=== PATIENT | male | born 1980 ===

== ENCOUNTER 2016-12-27 14:44 | Inpatient (IN) | payer OTHER ==
[2016-12-27 14:45] VITALS: BMI 21.5
--- NOTE | 2016-12-27 15:24 | ED PDOC ---
HPI: Psych/Substance Abuse Time Seen by Provider: 12/27/16 14:56 Chief Complaint (Nursing): Substance Abuse Chief Complaint (Provider): Substance Abuse History/Exam Limitations: other (Substance abuse; poor historian) Onset/Duration Of Symptoms: Hrs (prior to arrival) Current Symptoms Are (Timing): Still Present Additional Complaint(s): 36 y/o male presents to the emergency department via EMS for an evaluation of possible substance abuse after found wandering on the street with bizarre behavior. Patient slow to answer questions but admits to drug use but doesnt provide further details.. Denies drug use. Past Medical History Reviewed: Historical Data, Nursing Documentation, Vital Signs Vital Signs: Last Vital Signs Temp 98.0 F 12/27/16 14:47 Pulse 102 H 12/27/16 14:47 Resp 16 12/27/16 14:47 BP 96/57 L 12/27/16 14:47 Pulse Ox 100 12/27/16 14:47 - Medical History PMH: Anxiety, Depression, Pancreatitis, Seizures, Chronic Pain Denies: Diabetes, Hepatitis, HIV, HTN, Chronic Kidney Disease, Sexually Transmitted Disease - Surgical History Surgical History: No Surg Hx - Family History Family History: States: Unknown Family Hx - Social History Current smoker - smoking cessation education provided: Yes Alcohol: Occasional - Immunization History Hx Tetanus Toxoid Vaccination: No Hx Influenza Vaccination: Yes Hx Pneumococcal Vaccination: Yes - Home Medications Home Medications: Ambulatory Orders Medication Instructions Recorded Divalproex [Depakote ER] 500 mg PO BID 04/03/15 Lacosamide [Vimpat] 300 mg PO BID 04/03/15 Levetiracetam [Keppra] 500 mg PO BID 04/03/15 Zolpidem [Ambien] 5 mg PO HS 04/03/15 QUEtiapine [SEROquel] 100 mg PO BID 05/27/15 Divalproex [Depakote ER] 250 mg PO BID #20 ter 09/25/15 levETIRAcetam [Keppra] 500 mg PO BID #20 tab 09/25/15 Naloxone HCl [Narcan] 4 mg NS ONCE #5 spray 09/07/16 - Allergies Allergies/Adverse Reactions: Allergies Allergy/AdvReac Type Severity Reaction Status Date / Time No Known Allergies Allergy Verified 09/14/16 10:56 Review of Systems Review Of Systems: ROS cannot be obtained secondary to pt's inabilty to answer questions. Physical Exam - Physical Exam Appears: Positive for: Well, Non-toxic Head Exam: Positive for: ATRAUMATIC, NORMAL INSPECTION, NORMOCEPHALIC Skin: Positive for: Normal Color, Warm, Dry Cardiovascular/Chest: Positive for: Regular Rate, Rhythm Respiratory: Positive for: Normal Breath Sounds Gastrointestinal/Abdominal: Positive for: Normal Exam Neurologic/Psych: Positive for: Alert (but somnolent) - Laboratory Results Result Diagrams: 12/27/16 19:02 12/27/16 19:40 - ECG O2 Sat by Pulse Oximetry: 100 (RA) Pulse Ox Interpretation: Normal Medical Decision Making Medical Decision Making: Time: 14:56 Initial impression: Possible Substance Abuse --Patient is unable to provide hx and denying substance abuse. --Pending sobriety for assessment. Time: 15:26 Initial Plan: --Head w/o contrast CT --Acetaminophen Stat --Alcohol Serum Stat --COMP Metabolic Panel --Drug Screen, Urine Stat --Salycylate Stat --ED Urine Dipstick (POC) --CBC w differential --Haldol 5 mg IM --Ativan 2 mg IM --Urinalysis Stat --1:1 Observation CONT --Admit to hospital routine (Observation) for ETOH --Restraint: Violent or harm to self/other --Revaluation Scribe Attestation: Documented by Gladys Weiss, acting as a scribe for Evin Guy MD. Provider Scribe Attestation: All medical record entries made by the Scribe were at my direction and personally dictated by me. I have reviewed the chart and agree that the record accurately reflects my personal performance of the history, physical exam, medical decision making, and the department course for this patient. I have also personally directed, reviewed, and agree with the discharge instructions and disposition. ED OBSERVATION Date of observation admission: 12/27/16 Time of observation admission: 15:26 - Observation admission statement Patient is being placed in observation because:: for possible substance abuse/ETOH. - Goals of Observation Goals of observation are:: Pending clinical sobriety and Head CT. Time: 16:22 --Head CT FINDINGS: HEMORRHAGE: No intracranial hemorrhage. BRAIN: No mass effect or edema. The senior-white matter differentiation appears intact.Please note that MRI with diffusion imaging is more sensitive in the detection of acute ischemic event. VENTRICLES: No hydrocephalus. CALVARIUM: Unremarkable. PARANASAL SINUSES: Unremarkable as visualized. No significant inflammatory changes. MASTOID AIR CELLS: Unremarkable as visualized. No inflammatory changes. OTHER FINDINGS: None. IMPRESSION: No acute intracranial pathology identified. Disposition - Clinical Impression Clinical Impression: Elevated CK, Altered mental status, Bradycardia, Seizure disorder - Patient ED Disposition Is Patient to be Admitted: Transfer of Care - Disposition Disposition: Transfer of Care Disposition Time: 17:00 Condition: GUARDED Patient Signed Over To: Paul Jones III Handoff Comments: pending labs urine ekg cxr and dispo
--- NOTE | 2016-12-27 16:52 | CT ---
PROCEDURE: CT HEAD WITHOUT CONTRAST. HISTORY: Bizarre behavior COMPARISON: Noncontrast head CT performed 09/14/16 TECHNIQUE: Axial computed tomography images were obtained through the head/brain without intravenous contrast. Radiation dose: Total exam DLP = 874.95 mGy-cm. This CT exam was performed using one or more of the following dose reduction techniques: Automated exposure control, adjustment of the mA and/or kV according to patient size, and/or use of iterative reconstruction technique. FINDINGS: HEMORRHAGE: No intracranial hemorrhage. BRAIN: No mass effect or edema. The senior-white matter differentiation appears intact.Please note that MRI with diffusion imaging is more sensitive in the detection of acute ischemic event. VENTRICLES: No hydrocephalus. CALVARIUM: Unremarkable. PARANASAL SINUSES: Unremarkable as visualized. No significant inflammatory changes. MASTOID AIR CELLS: Unremarkable as visualized. No inflammatory changes. OTHER FINDINGS: None. IMPRESSION: No acute intracranial pathology identified.
--- NOTE | 2016-12-27 17:09 | ED PDOC ---
- Laboratory Results Result Diagrams: 12/27/16 19:02 12/27/16 19:40 - ECG ECG: Positive for: Interpreted By Me ECG Rhythm: Positive for: Sinus Bradycardia, ST/T Changes (peaked / hyperacute T waves) Rate: 52 O2 Sat by Pulse Oximetry: 100 (RA) Pulse Ox Interpretation: Normal Medical Decision Making Medical Decision Making: Time: 1700 --Placed on ED OBS (15:27) --Pending clinical sobriety, labs, possible crisis evaluation and reassessment. Time: 18:53 --Patient became bradycardic at 49 bpm and a blood pressure of 100/60. --EKG was performed which showed a RRR of 62 bpm with hyperacute T waves therefore cardiac workup was initiated with further blood work obtained and fluid work up started. --Venous Blood Gas Shock --Basic Metabolic Panel --Creatine Phosphokinase --Troponin I Stat --CBC w/ differential --Revaluation labs reviewed lactate normal Depakote therapeutic UDip unremarkable 7pm Remains moderate bradycardia, BP 105/70 on my eval. Remains confused, post-ictal appearing. Unaware date/time- only person and "hospital". Given EKG changes, AMS, mild bradycardia and hypotension, admit Dr Altamirano production service manager medicine. Old charts reviewed from [facility], prior admission for same, concern for endocarditis/ AMS/ drug abus.e Case discussed Dr Altamirano 920pm/ 21:18 Patient admitted to Telemetry as an inpatient for altered mental status, abnormal EKG with bradycardia Scribe Attestation: Documented by Gladys Weiss, acting as a scribe for Paul Jones MD. Provider Scribe Attestation: All medical record entries made by the Scribe were at my direction and personally dictated by me. I have reviewed the chart and agree that the record accurately reflects my personal performance of the history, physical exam, medical decision making, and the department course for this patient. I have also personally directed, reviewed, and agree with the discharge instructions and disposition. Disposition Counseled Patient/Family Regarding: Studies Performed - Clinical Impression Clinical Impression: Elevated CK, Altered mental status, Bradycardia, Seizure disorder - POA Present On Arrival: None - Disposition Disposition: Admitted as In-Patient Disposition Time: 20:45 Condition: GUARDED ED OBSERVATION Date of observation admission: 12/27/16 Time of observation admission: 15:26 - Observation admission statement Patient is being placed in observation because:: --patient is restrained due to being violent or harmful to others and unstable due to possible substance abuse. - Goals of Observation Goals of observation are:: --patient is pending clinical sobriety, labs, possible crisis evaluation and reassessment. - Progress Note Progress Note: 12/27/16 17:00 --Transferred from Dr. Guy Time: 16:22 --Head CT FINDINGS: HEMORRHAGE: No intracranial hemorrhage. BRAIN: No mass effect or edema. The senior-white matter differentiation appears intact.Please note that MRI with diffusion imaging is more sensitive in the detection of acute ischemic event. VENTRICLES: No hydrocephalus. CALVARIUM: Unremarkable. PARANASAL SINUSES: Unremarkable as visualized. No significant inflammatory changes. MASTOID AIR CELLS: Unremarkable as visualized. No inflammatory changes. OTHER FINDINGS: None. IMPRESSION: No acute intracranial pathology identified. Scribe Attestation: Documented by Gladys Weiss, acting as a scribe for Paul Jones MD. Provider Scribe Attestation: All medical record entries made by the Scribe were at my direction and personally dictated by me. I have reviewed the chart and agree that the record accurately reflects my personal performance of the history, physical exam, medical decision making, and the department course for this patient. I have also personally directed, reviewed, and agree with the discharge instructions and disposition. 12/27/16 21:25 See above. Pt required extensive monitoring and re-evals for bradycardia with EKG changes and AMS.
[2016-12-27 17:33] LABS: ALB/GLOB RATIO 1.2 (1.0-2.1); ALBUMIN 4.1 g/dL (3.5-5.0); ALT/SGPT 57 U/L (21-72); AST/SGOT 48 U/L (17-59); BLOOD UREA NITROGEN 17 mg/dl (9-20); GFR AFRICAN-AMERICAN > 60; GFR NON-AFRICAN AMERICAN > 60
[2016-12-27 17:35] LABS: SALICYLATE < 1.0 mg/dl
[2016-12-27] MEDS ORDERED: Sodium Chloride 0.9% 1,000 ML IV STA ×2 (17:50→22:39)
[2016-12-27 18:40] LABS: ACETAMINOPHEN < 10.0 ug/ml (10.0-30.0)
[2016-12-27 19:17] LABS: BASO % 0.6 % (0.0-2.0); EOS # 0.1 K/uL (0.0-0.7); EOS % 1.1 % (0.0-4.0); HEMOGLOBIN 13.2 g/dL (12.0-18.0); LYMPH # 2.9 K/uL (1.0-4.3); LYMPH % 61.4 % (20.0-40.0); MEAN CELL VOLUME 99.5 fl (80.0-94.0); MEAN CORPUSCULAR HEMOGLOBIN 32.8 pg (27.0-31.0); MEAN PLATELET VOLUME 9.7 fl (7.2-11.7); MONO # 0.5 K/uL (0.0-0.8); MONO % 10.3 % (0.0-10.0); NEUT # 1.3 K/uL (1.8-7.0); NEUT % 26.6 % (50.0-75.0); NRBC % 0.1 % (0.0-0.0); RBC 4.02 Mil/uL (4.40-5.90); RED CELL DISTRIBUTION WIDTH 13.6 % (11.5-14.5); WHITE BLOOD COUNT 4.7 K/uL (4.8-10.8)
[2016-12-27 20:04] LABS: BLOOD UREA NITROGEN 15 mg/dl (9-20); CALCIUM 8.7 mg/dL (8.4-10.2); GFR AFRICAN-AMERICAN > 60; GFR NON-AFRICAN AMERICAN > 60
[2016-12-27 21:29] LABS: URINE BILIRUBIN NEGATIVE (NEGATIVE); URINE BLOOD SMALL (NEGATIVE); URINE CLARITY CLEAR (Clear); URINE COLOR YELLOW (YELLOW); URINE GLUCOSE (UA) NEG (Normal); URINE LEUKOCYTE ESTERASE NEG Leu/uL (Negative); URINE NITRATE NEGATIVE (NEGATIVE); URINE PROTEIN NEGATIVE (NEGATIVE); URINE UROBILINOGEN 0.2-1.0 mg/dL (0.2-1.0)
[2016-12-27 21:34] LABS: BARBITURATES, UR NEGATIVE (NEGATIVE); BENZODIAZEPINES, UR POSITIVE (NEGATIVE); OPIATES, UR POSITIVE (NEGATIVE); PHENCYCLIDINE, UR NEGATIVE (NEGATIVE)
[2016-12-28 00:19] VITALS: RESP 18
[2016-12-28] MEDS ORDERED: Enoxaparin 40 mg Syringe SC SCH (09:00)
[2016-12-28] MEDS ORDERED: Lacosamide 50 MG Tab PO SCH (09:00)
[2016-12-28] MEDS ORDERED: Divalproex 250 mg DR(BID formulation) PO SCH (09:00)
--- NOTE | 2016-12-28 10:08 | RAD ---
HISTORY: r/o infiltrate COMPARISON: Comparison chest 05/13/2016 FINDINGS: LUNGS: No active pulmonary disease. PLEURA: No significant pleural effusion identified, no pneumothorax apparent. CARDIOVASCULAR: Normal. OSSEOUS STRUCTURES: No significant abnormalities. VISUALIZED UPPER ABDOMEN: Normal. OTHER FINDINGS: None. IMPRESSION: No active disease.
[2016-12-28] MEDS ORDERED: Lacosamide 100 MG Tab PO SCH (10:15)
[2016-12-28 12:23] VITALS: BP 108/61; TEMP 98.2
[2016-12-28 12:55] VITALS: O2SAT 100
--- NOTE | 2016-12-28 14:18 | CP.PCM.HP ---
<Lalitha Storey - Last Filed: 12/28/16 14:15> History of Present Illness - History of Present Illness History of Present Illness: 36yo M with PMHx Anxiety, Depression, Pancreatitis, Seizures, Chronic Pain admitted for AMS and substance abuse. Pt does not recollect why he is in the hospital and would like to leave. Denies drug use. PMHx: as above SHx: denies FHx: NC Allergies: NKDA Social hx: denies drug use evaluated with attending Present on Admission - Present on Admission Any Indicators Present on Admission: No Review of Systems - Constitutional Constitutional: absent: Chills, Fever - Cardiovascular Cardiovascular: absent: Chest Pain - Respiratory Respiratory: absent: Dyspnea - Gastrointestinal Gastrointestinal: absent: Abdominal Pain, Diarrhea, Nausea, Vomiting - Genitourinary Genitourinary: absent: Dysuria, Hematuria - Musculoskeletal Musculoskeletal: absent: Back Pain - Neurological Neurological: absent: Headaches Past Patient History - Infectious Disease Hx of Infectious Diseases: None - Tetanus Immunizations Tetanus Immunization: Unknown - Past Medical History & Family History Past Medical History?: Yes - Past Social History Alcohol: Occasional - CARDIAC Hx Hypertension: No - PULMONARY Hx Respiratory Disorders: No - NEUROLOGICAL Hx Seizures: Yes - HEENT Hx HEENT Problems: No - RENAL Hx Chronic Kidney Disease: No - ENDOCRINE/METABOLIC Hx Endocrine Disorders: No - HEMATOLOGICAL/ONCOLOGICAL Hx Human Immunodeficiency Virus (HIV): No - INTEGUMENTARY Hx Dermatological Problems: No - MUSCULOSKELETAL/RHEUMATOLOGICAL Hx Musculoskeletal Disorders: No Hx Falls: Yes - GASTROINTESTINAL Hx Pancreatitis: Yes - GENITOURINARY/GYNECOLOGICAL Hx Sexually Transmitted Disorders: No - PSYCHIATRIC Hx Anxiety: Yes Hx Depression: Yes - SURGICAL HISTORY Hx Surgeries: Yes - ANESTHESIA Hx Anesthesia: Yes Hx Anesthesia Reactions: No Meds Allergies/Adverse Reactions: Allergies Allergy/AdvReac Type Severity Reaction Status Date / Time No Known Allergies Allergy Verified 09/14/16 10:56 Physical Exam - Constitutional Appears: Non-toxic, No Acute Distress - Head Exam Head Exam: ATRAUMATIC, NORMAL INSPECTION - Eye Exam Eye Exam: Normal appearance - ENT Exam ENT Exam: Mucous Membranes Moist - Neck Exam Neck exam: Positive for: Normal Inspection - Respiratory Exam Respiratory Exam: Clear to Auscultation Bilateral - Cardiovascular Exam Cardiovascular Exam: REGULAR RHYTHM - GI/Abdominal Exam GI & Abdominal Exam: Normal Bowel Sounds, Soft - Extremities Exam Extremities exam: Positive for: normal inspection - Back Exam Back exam: NORMAL INSPECTION - Neurological Exam Neurological exam: Alert, Oriented x3 Additional comments: motor/sensation grossly intact - Skin Skin Exam: Dry, Warm Results - Vital Signs Recent Vital Signs: Last Vital Signs Temp 98.2 F 12/28/16 12:23 Pulse 46 L 12/28/16 12:23 Resp 18 12/28/16 12:23 BP 108/61 12/28/16 12:23 Pulse Ox 100 12/28/16 12:57 - Labs Result Diagrams: 12/27/16 19:02 12/27/16 19:40 Labs: Laboratory Results - last 24 hr 12/28/16 07:04 Valproic Acid 38.9 L Assessment & Plan - Assessment and Plan (Free Text) Assessment: 36yo M with PMHx Anxiety, Depression, Pancreatitis, Seizures, Chronic Pain admitted for AMS and substance abuse. pt would like to s/o AMA AMS -neuro c/s -psych c/s -CT Head: no acute pathology substance abuse -urine tox: + opiates and benzo -denies drug use seizure -c/w home med -neuro c/s DVT ppx -SCDs Decision To Admit - Pt Status Changed To: Hospital Disposition Of: Observation - . Bed Request Type: Telemetry Admitting Physician: Jagjit Altamirano <Jagjit Altamirano - Last Filed: 12/30/16 17:57> Results - Vital Signs Recent Vital Signs: Last Vital Signs Temp 98.2 F 12/28/16 12:23 Pulse 46 L 12/28/16 12:23 Resp 18 12/28/16 12:23 BP 108/61 12/28/16 12:23 Pulse Ox 100 12/28/16 12:57 - Labs Result Diagrams: 12/27/16 19:02 12/27/16 19:40 Assessment & Plan - Assessment and Plan (Free Text) Assessment: Patient seen and examined with residents in rounds. Case, condition, investigative work up and plan discussed in detail. Agree with residents progress note. Plan: As ordered. (Jagjit Altamirano MD)
--- NOTE | 2016-12-28 14:22 | CP.PCM.CON ---
History of Present Illness - History of Present Illness History of Present Illness: psychiatry consult ordered by: dr garcia reason:AMS and pt wants to sign out AMA cc: doc, let me leave hpi: 36 yo male with history of opioid dependence and current iv use. he has a seizure disorder. he was admitted after he was found wandering streets acting bizarrely last night. he states he is not suicidal or homicidal. he states he was using heroin and also "took some pills." he is currently vomiting, cramping , nauseated and obviously in opioid withdrawal. he states he plans to go to an inpatient rehab program in [place], [place] but has no details about the program. states it is his sons birthday and he wants to go home. no psychotic or mood symptoms currently. past psych: most recently in [facility]. not adherent to follow up. medical history: has seizure disorder substance use: 10-15 bags heroin iv daily. will not disclose what "pill he took " prior to admission. social: gets ssi, lives alone. mse: alert, oriented x 3. mood is irritated/anxious. affect appropriate. denies si/hi. denies a/v hallucinations. thoughts are logical. speech is appropriate. fair i/j. assessment: opioid depedence in withdrawal pt not expressing suicidal thoughts and exhibiting behavioral control currently recommendation: no need for acute psychiatric treatment appears to have capacity to understand his treatment and made decisions about his discharge pt's presenting symptoms could be related to his neurological condition and this investigative writer is not able to comment regarding pt's seizure disorder. Past Patient History - Infectious Disease Hx of Infectious Diseases: None - Tetanus Immunizations Tetanus Immunization: Unknown - Past Medical History & Family History Past Medical History?: Yes - Past Social History Alcohol: Occasional - CARDIAC Hx Hypertension: No - PULMONARY Hx Respiratory Disorders: No - NEUROLOGICAL Hx Seizures: Yes - HEENT Hx HEENT Problems: No - RENAL Hx Chronic Kidney Disease: No - ENDOCRINE/METABOLIC Hx Endocrine Disorders: No - HEMATOLOGICAL/ONCOLOGICAL Hx Human Immunodeficiency Virus (HIV): No - INTEGUMENTARY Hx Dermatological Problems: No - MUSCULOSKELETAL/RHEUMATOLOGICAL Hx Musculoskeletal Disorders: No Hx Falls: Yes - GASTROINTESTINAL Hx Pancreatitis: Yes - GENITOURINARY/GYNECOLOGICAL Hx Sexually Transmitted Disorders: No - PSYCHIATRIC Hx Anxiety: Yes Hx Depression: Yes - SURGICAL HISTORY Hx Surgeries: Yes - ANESTHESIA Hx Anesthesia: Yes Hx Anesthesia Reactions: No Meds Allergies/Adverse Reactions: Allergies Allergy/AdvReac Type Severity Reaction Status Date / Time No Known Allergies Allergy Verified 09/14/16 10:56 - Medications Medications: Current Medications Divalproex Sodium (Depakote Dr(*Bid*)) 250 mg PO BID [facility] Last Admin: 12/28/16 09:25 Dose: 250 mg Enoxaparin Sodium (Lovenox) 40 mg SC DAILY [facility] PRN Reason: Protocol Last Admin: 12/28/16 09:27 Dose: 40 mg Levetiracetam (Keppra) 500 mg PO BID [facility] Last Admin: 12/28/16 11:01 Dose: 500 mg Ondansetron HCl (Zofran Inj) 4 mg IVP Q6 PRN PRN Reason: Nausea/Vomiting Last Admin: 12/28/16 12:45 Dose: 4 mg Results - Vital Signs Recent Vital Signs: Last Vital Signs Temp 98.2 F 12/28/16 12:23 Pulse 46 L 12/28/16 12:23 Resp 18 12/28/16 12:23 BP 108/61 12/28/16 12:23 Pulse Ox 100 12/28/16 12:57 - Labs Result Diagrams: 12/27/16 19:02 12/27/16 19:40 Labs: Laboratory Results - last 24 hr 12/28/16 07:04 Valproic Acid 38.9 L
--- NOTE | 2016-12-28 15:37 | CP.PCM.DIS ---
Provider - Provider Date of Admission: 12/27/16 21:18 Attending physician: Jagjit Altamirano MD Time Spent in preparation of Discharge (in minutes): 20 Diagnosis - Discharge Diagnosis (1) Altered mental status Status: Acute (2) Seizure disorder Status: Chronic (3) Drug abuse Status: Acute Priority: High Hospital Course - Lab Results Lab Results: Most Recent Lab Values WBC 4.7 K/uL (4.8-10.8) L 12/27/16 19:02 RBC 4.02 Mil/uL (4.40-5.90) L 12/27/16 19:02 Hgb 13.2 g/dL (12.0-18.0) 12/27/16 19: Hct 40.0 % (35.0-51.0) 12/27/16 19:02 MCV 99.5 fl (80.0-94.0) H D 12/27/16 19:02 MCH 32.8 pg (27.0-31.0) H 12/27/16 19:02 MCHC 33.0 g/dL (33.0-37.0) 12/27/16 19: RDW 13.6 % (11.5-14.5) 12/27/16 19:02 Plt Count 94 K/uL (130-400) L D 12/27/16 19:02 MPV 9.7 fl (7.2-11.7) 12/27/16 19:02 Neut % (Auto) 26.6 % (50.0-75.0) L 12/27/16 19: Lymph % (Auto) 61.4 % (20.0-40.0) H 12/27/16 19:02 [place] % (Auto) 10.3 % (0.0-10.0) H 12/27/16 19:02 Eos % (Auto) 1.1 % (0.0-4.0) 12/27/16 19:02 Baso % (Auto) 0.6 % (0.0-2.0) 12/27/16 19:02 Neut # 1.3 K/uL (1.8-7.0) L 12/27/16 19: Lymph # 2.9 K/uL (1.0-4.3) 12/27/16 19:02 [place] # 0.5 K/uL (0.0-0.8) 12/27/16 19:02 Eos # 0.1 K/uL (0.0-0.7) 12/27/16 19:02 Baso # 0.0 K/uL (0.0-0.2) 12/27/16 19:02 Sodium 142 mmol/l (132-148) 12/27/16 19:40 Potassium 4.1 MMOL/L (3.6-5.0) 12/27/16 19:40 Chloride 108 mmol/L (98-107) H 12/27/16 19:40 Carbon Dioxide 26 mmol/L (22-30) 12/27/16 19:40 Anion Gap 12 (10-20) 12/27/16 19:40 BUN 15 mg/dl (9-20) 12/27/16 19:40 Creatinine 0.7 mg/dL (0.8-1.5) L 12/27/16 19:40 Est GFR ( Amer) > 60 12/27/16 19:40 Est GFR (Non-Af Amer) > 60 12/27/16 19:40 Random Glucose 84 mg/dL (75-110) 12/27/16 19:40 Lactic Acid 0.6 MMOL/L (0.7-2.1) L 12/27/16 19:40 Calcium 8.7 mg/dL (8.4-10.2) 12/27/16 19:40 Total Bilirubin 0.6 mg/dl (0.2-1.3) 12/27/16 16:55 AST 48 U/L (17-59) 12/27/16 16:55 ALT 57 U/L (21-72) 12/27/16 16:55 Alkaline Phosphatase 34 U/L (38-126) L 12/27/16 16:55 Total Creatine Kinase 314 U/L (55-170) H 12/27/16 19:40 Troponin I < 0.0120 ng/mL (0.00-0.120) 12/27/16 19:40 Total Protein 7.4 G/DL (6.3-8.2) 12/27/16 16:55 Albumin 4.1 g/dL (3.5-5.0) 12/27/16 16:55 Globulin 3.3 gm/dL (2.2-3.9) 12/27/16 16:55 Albumin/Globulin Ratio 1.2 (1.0-2.1) 12/27/16 16:55 Urine Color Yellow (YELLOW) 12/27/16 21:12 Urine Clarity Clear (Clear) 12/27/16 21:12 Urine pH 6.0 (5.0-8.0) 12/27/16 21:12 Ur Specific [place] 1.010 (1.003-1.030) 12/27/16 21:12 Urine Protein Negative mg/dL (NEGATIVE) 12/27/16 21:12 Urine Glucose (UA) Neg mg/dL (Normal) 12/27/16 21:12 Urine Ketones Negative mg/dL (NEGATIVE) 12/27/16 21:12 Urine Blood Small (NEGATIVE) 12/27/16 21:12 Urine Nitrate Negative (NEGATIVE) 12/27/16 21:12 Urine Bilirubin Negative (NEGATIVE) 12/27/16 21:12 Urine Urobilinogen 0.2-1.0 mg/dL (0.2-1.0) 12/27/16 21:12 Ur Leukocyte Esterase Neg Nicolás/uL (Negative) 12/27/16 21:12 Urine RBC (Auto) < 1 /hpf (0-3) 12/27/16 21:12 Urine Microscopic WBC 1 /hpf (0-5) 12/27/16 21:12 Salicylates < 1.0 mg/dl 12/27/16 16:55 Urine Opiates Screen Positive (NEGATIVE) H 12/27/16 21:12 Urine Methadone Screen Negative (NEGATIVE) 12/27/16 21:12 Acetaminophen < 10.0 ug/ml (10.0-30.0) L 12/27/16 16:55 Ur Barbiturates Screen Negative (NEGATIVE) 12/27/16 21:12 Valproic Acid 38.9 ug/mL (50.0-100.0) L 12/28/16 07:04 Ur Phencyclidine Scrn Negative (NEGATIVE) 12/27/16 21:12 Ur Amphetamines Screen Negative (NEGATIVE) 12/27/16 21:12 U Benzodiazepines Scrn Positive (NEGATIVE) H 12/27/16 21:12 U Oth Cocaine Metabols Negative (NEGATIVE) 12/27/16 21:12 U Cannabinoids Screen Negative (NEGATIVE) 12/27/16 21:12 Alcohol, Quantitative < 10 mg/dl (0-10) 12/27/16 16:55 - Hospital Course Hospital Course: 36yo M with PMHx Anxiety, Depression, Pancreatitis, Seizures, Chronic Pain admitted for AMS and substance abuse. c/s psych Dr. Pastor and recommended pt could make own decisions. Pt wanted to s/o AMA and didn't want further workup/ tx per neuro c/s, AMA form signed. Pt to FU with neuro as outpt. Discharge Exam - Head Exam Head Exam: ATRAUMATIC, NORMAL INSPECTION Discharge Plan - Follow Up Plan Condition: GUARDED Disposition: AGAINST MEDICAL ADVICE Additional Instructions: FU with neurology
--- NOTE | 2016-12-30 11:43 | PQF GENQUE ---
Dr. Altamirano pt was admitted with altered mental status. After study what is the source or cause of pt's altered mental status? This form is a permanent part of the medical record Clarification of your documentation is requested to better reflect the severity of illness and intensity of treatment of your patient. Indicators present [] Specify: [] [] Specify: [] [] Specify: [] [] Specify: [] Location in the medical record that reflects the above clinical findings: [] Treatment Provided: [] PHYSICIAN'S RESPONSE Based on your medical judgment of the clinical indicators outlined above please clarify the following: [] Practitioner response [] If unable to determine, please check the box, sign and date. Present On Admission (POA) Indicator: [] Present at the time of admission [] Not present at the time of admission [] Clinically Undetermined In responding to this query, please exercise your independent professional judgment. The fact that a question is asked does not imply that any particular answer is desired or expected. Thank you for your clarification on this documentation. If you have any questions please call:[ ] * Thank you, [ ]Missy Gross delivery professional EVELIA
--- NOTE | 2016-12-30 11:50 | PQF GENQUE ---
consult dated 12/28 documented opioid dependence in withdrawal. Discharge summary documented drug abuse. After study do you agree with consultation report? This form is a permanent part of the medical record Clarification of your documentation is requested to better reflect the severity of illness and intensity of treatment of your patient. Indicators present [] Specify: [] [] Specify: [] [] Specify: [] [] Specify: [] Location in the medical record that reflects the above clinical findings: [] Treatment Provided: [] PHYSICIAN'S RESPONSE Based on your medical judgment of the clinical indicators outlined above please clarify the following: [] Practitioner response [] If unable to determine, please check the box, sign and date. Present On Admission (POA) Indicator: [] Present at the time of admission [] Not present at the time of admission [] Clinically Undetermined In responding to this query, please exercise your independent professional judgment. The fact that a question is asked does not imply that any particular answer is desired or expected. Thank you for your clarification on this documentation. If you have any questions please call:[ ] * Thank you, [ ]Missy Gross etl informatica developer EVELIA
[2017-01-04 15:26] VITALS: PULSE 52
== END 2016-12-28 15:40 | disposition left against medical advice (07) | DRG 463 ==
LOC: H.ER 14:44 → H.EROBSV 15:26 → OBSVTOIN 21:18 → H.ERHOLD 21:23 → H.TEL 22:57
PROVIDERS: ADMIT Internal Medicine; ATTEND Internal Medicine
DX: R41.82 Altered mental status, unspecified (principal); F11.10 Opioid abuse, uncomplicated; Z78.1 Physical restraint status; R00.1 Bradycardia, unspecified; F32.9 Major depressive disorder, single episode, unspecified; G40.909 Epilepsy, unspecified, not intractable, without status epilepticus; Z91.83 Wandering in diseases classified elsewhere; F41.9 Anxiety disorder, unspecified; G89.29 Other chronic pain

== ENCOUNTER 2017-01-27 21:41 | Emergency (ER) | payer MEDICAID, OTHER ==
[2017-01-27 21:42] VITALS: BMI 21.5
[2017-01-27 21:52] VITALS: BP 113/68; PULSE 79; RESP 19; TEMP 98.6; O2SAT 97
[2017-01-27] MEDS ORDERED: Sodium Chloride 0.9% 1,000 ML IV STA (22:08)
--- NOTE | 2017-01-27 22:11 | ED PDOC ---
HPI: General Adult Time Seen by Provider: 01/27/17 22:08 Chief Complaint (Nursing): Seizure Chief Complaint (Provider): SUICIDAL IDEATION History Per: Patient (36 Y/O MALE H/O EPILEPSY/HEROIN ABUSE/DEPRESSION HERE WITH COMPLAINT OF SUICIDAL IDEATION/DEPRESSION AND HEROIN INGESTION TODAY IN ATTEMPT TO HURT SELF. PATIENT NOTES SEIZURE TODAY AT 6:30 UNWITNESSED. RECENTLY DISCHARGED FOR THIS 3 DAYS PRIOR AT [facility]. STATES COMPLIANT ON SEIZURE MEDICATION.) Past Medical History Reviewed: Historical Data, Nursing Documentation, Vital Signs Vital Signs: Last Vital Signs Temp 98.6 F 01/27/17 21:44 Pulse 79 01/27/17 21:44 Resp 19 01/27/17 21:44 BP 113/68 01/27/17 21:44 Pulse Ox 97 01/27/17 22:11 - Medical History PMH: Anxiety, Depression, Pancreatitis, Seizures, Chronic Pain Denies: Diabetes, Hepatitis, HIV, HTN, Chronic Kidney Disease, Sexually Transmitted Disease - Family History Family History: States: Unknown Family Hx - Immunization History Hx Tetanus Toxoid Vaccination: No Hx Influenza Vaccination: Yes Hx Pneumococcal Vaccination: Yes - Home Medications Home Medications: Ambulatory Orders Medication Instructions Recorded Divalproex [Depakote ER] 500 mg PO BID 04/03/15 Eslicarbazepine Acetate [Aptiom] 1 tab PO DAILY 01/09/17 Zolpidem [Ambien] 1 tab PO HS 01/09/17 hydrALAZINE [Apresoline] 1 tab PO DAILY 01/09/17 - Allergies Allergies/Adverse Reactions: Allergies Allergy/AdvReac Type Severity Reaction Status Date / Time No Known Allergies Allergy Verified 01/27/17 21:48 Review of Systems ROS Statement: Except As Marked, All Systems Reviewed And Found Negative Physical Exam - Reviewed Nursing Documentation Reviewed: Yes Vital Signs Reviewed: Yes - Physical Exam Appears: Positive for: Well, Non-toxic, No Acute Distress Head Exam: Positive for: ATRAUMATIC, NORMAL INSPECTION, NORMOCEPHALIC Skin: Positive for: Normal Color, Warm, DRY Eye Exam: Positive for: EOMI, Normal appearance, PERRL ENT: Positive for: Normal ENT Inspection Neck: Positive for: Normal, Painless ROM Cardiovascular/Chest: Positive for: Regular Rate, Rhythm Respiratory: Positive for: CNT, Normal Breath Sounds Gastrointestinal/Abdominal: Positive for: Normal Exam, Bowel Sounds, Soft Back: Positive for: Normal Inspection Extremity: Positive for: Normal ROM Neurologic/Psych: Positive for: Alert, Oriented - Laboratory Results Result Diagrams: 01/27/17 22:32 01/27/17 22:32 - ECG O2 Sat by Pulse Oximetry: 97 - Progress ED Course And Treament: Patient reading newpaper in ED. Seen by crisis Cleared for discharge by Dr. Up Diagnosis Opiate Addiction. Disposition - Clinical Impression Clinical Impression: Opiate addiction - Patient ED Disposition Is Patient to be Admitted: No - Disposition Referrals: [facility] [place] [Outside] Disposition: Routine/Home Disposition Time: 01:58 Condition: FAIR Instructions: Narcotic Abuse (ED)
[2017-01-27 22:37] LABS: BASO % 0.7 % (0.0-2.0); EOS # 0.1 K/uL (0.0-0.7); EOS % 2.3 % (0.0-4.0); HEMATOCRIT 33.9 % (35.0-51.0); LYMPH # 2.1 K/uL (1.0-4.3); LYMPH % 50.3 % (20.0-40.0); MEAN CELL VOLUME 96.1 fl (80.0-94.0); MEAN CORPUSCULAR HGB CONC 34.4 g/dL (33.0-37.0); MEAN PLATELET VOLUME 8.6 fl (7.2-11.7); MONO # 0.5 K/uL (0.0-0.8); MONO % 11.6 % (0.0-10.0); NEUT # 1.5 K/uL (1.8-7.0); NEUT % 35.1 % (50.0-75.0); NRBC % 0.2 % (0.0-0.0); RED CELL DISTRIBUTION WIDTH 13.1 % (11.5-14.5); WHITE BLOOD COUNT 4.2 K/uL (4.8-10.8)
[2017-01-27 22:42] LABS: RBC URINE 1 /hpf (0-3); URINE BILIRUBIN NEGATIVE (NEGATIVE); URINE BLOOD NEGATIVE (NEGATIVE); URINE COLOR YELLOW (YELLOW); URINE GLUCOSE (UA) NEG (Normal); URINE KETONE TRACE mg/dL (NEGATIVE); URINE LEUKOCYTE ESTERASE NEG Leu/uL (Negative); URINE PROTEIN NEGATIVE (NEGATIVE); WBC URINE 1 /hpf (0-5)
[2017-01-27 22:47] LABS: ALB/GLOB RATIO 1.2 (1.0-2.1); ALCOHOL SERUM < 10 mg/dl (0-10); ALKALINE PHOSPHATASE 37 U/L (38-126); ALT/SGPT 61 U/L (21-72); AST/SGOT 50 U/L (17-59); BILIRUBIN,TOTAL 0.4 mg/dl (0.2-1.3); BLOOD UREA NITROGEN 10 mg/dl (9-20); CARBON DIOXIDE 29 mmol/L (22-30); CHLORIDE 103 mmol/L (98-107); GFR AFRICAN-AMERICAN > 60; GLUCOSE,RANDOM 97 mg/dL (75-110); MAGNESIUM 1.8 MG/DL (1.6-2.3); POTASSIUM 3.9 MMOL/L (3.6-5.0); SODIUM 140 mmol/l (132-148); TOTAL PROTEIN 7.6 G/DL (6.3-8.2)
== END 2017-01-28 02:17 | disposition home or self-care (01) ==
LOC: H.ER 21:41
DX: F11.20 Opioid dependence, uncomplicated (principal)

== ENCOUNTER 2017-04-07 03:21 | Emergency (ER) | payer OTHER ==
[2017-04-07 03:21] VITALS: BMI 21.5
[2017-04-07 03:35] VITALS: BP 141/86; PULSE 101; RESP 18; TEMP 97.9; O2SAT 100
--- NOTE | 2017-04-07 04:07 | ED PDOC ---
HPI: Headache Chief Complaint (Provider): Headache History Per: Patient History/Exam Limitations: no limitations Onset/Duration Of Symptoms: Hrs Additional Complaint(s): Bradly Ng is a 36 year old male, with a past medical history of anxiety and depression, who was brought to the emergency department by EMS complaining of a headache associated with dizziness onset prior to arrival. EMS reports patient was picked up from [facility] after feeling dizzy. Patient states he was released from group home at 1:20am, he ambulated from [place] to [place], where he lives, and stopped at [facility]. He denies any further medical complaints. PMD: None provided. <Mitch Muir - Last Filed: 04/07/17 04:12> <Wanda Waters - Last Filed: 04/07/17 05:14> Time Seen by Provider: 04/07/17 03:34 Chief Complaint (Nursing): Headache Past Medical History Reviewed: Historical Data, Nursing Documentation, Vital Signs Vital Signs: Last Vital Signs Temp 97.9 F 04/07/17 03:31 Pulse 101 H 04/07/17 03:31 Resp 18 04/07/17 03:31 BP 141/86 04/07/17 03:31 Pulse Ox 100 04/07/17 03:31 - Medical History PMH: Anxiety, Depression, Pancreatitis, Seizures, Chronic Pain Denies: Diabetes, Hepatitis, HIV, HTN, Chronic Kidney Disease, Sexually Transmitted Disease - Family History Family History: States: Unknown Family Hx - Social History Current smoker - smoking cessation education provided: Yes (Light smoker <10 cigarettes daily) Alcohol: None Drugs: Other (Heroin) - Immunization History Hx Tetanus Toxoid Vaccination: No Hx Influenza Vaccination: Yes Hx Pneumococcal Vaccination: Yes <Mitch Muir - Last Filed: 04/07/17 04:12> Vital Signs: Last Vital Signs Temp 97.9 F 04/07/17 03:31 Pulse 101 H 04/07/17 03:31 Resp 18 04/07/17 03:31 BP 141/86 04/07/17 03:31 Pulse Ox 100 04/07/17 04:15 <Wanda Waters - Last Filed: 04/07/17 05:14> - Home Medications Home Medications: Ambulatory Orders Medication Instructions Recorded Divalproex [Depakote ER] 500 mg PO BID 04/03/15 Eslicarbazepine Acetate [Aptiom] 1 tab PO DAILY 01/09/17 Zolpidem [Ambien] 1 tab PO HS 01/09/17 hydrALAZINE [Apresoline] 1 tab PO DAILY 01/09/17 - Allergies Allergies/Adverse Reactions: Allergies Allergy/AdvReac Type Severity Reaction Status Date / Time No Known Allergies Allergy Verified 04/07/17 03:31 Review of Systems ROS Statement: Except As Marked, All Systems Reviewed And Found Negative Neurological: Positive for: Headache, Dizziness <Mitch Muir - Last Filed: 04/07/17 04:12> Physical Exam - Reviewed Nursing Documentation Reviewed: Yes Vital Signs Reviewed: Yes - Physical Exam Appears: Positive for: Well, Non-toxic, No Acute Distress Head Exam: Positive for: ATRAUMATIC, NORMAL INSPECTION, NORMOCEPHALIC Skin: Positive for: Normal Color, Warm, Dry Eye Exam: Positive for: EOMI, Normal appearance, PERRL Neck: Positive for: Normal, Painless ROM, Supple Cardiovascular/Chest: Positive for: Regular Rate, Rhythm. Negative for: Murmur Respiratory: Positive for: Normal Breath Sounds. Negative for: Respiratory Distress Gastrointestinal/Abdominal: Positive for: Normal Exam, Bowel Sounds, Soft. Negative for: Tenderness Back: Positive for: Normal Inspection. Negative for: L CVA Tenderness, R CVA Tenderness Extremity: Positive for: Normal ROM. Negative for: Pedal Edema Neurologic/Psych: Positive for: Alert, Oriented. Negative for: Motor/Sensory Deficits <Mitch Muir - Last Filed: 04/07/17 04:12> - ECG O2 Sat by Pulse Oximetry: 100 (RA) Pulse Ox Interpretation: Normal <Mitch Muir - Last Filed: 04/07/17 04:12> Medical Decision Making Medical Decision Making: Initial Impression: headache Initial Plan: -Patient is now stating he feels fine and wants to go home. Scribe Attestation: Documented by Jayson Mendoza, acting as a scribe for Mitch Muir MD Provider Scribe Attestation: All medical record entries made by the Scribe were at my direction and personally dictated by me. I have reviewed the chart and agree that the record accurately reflects my personal performance of the history, physical exam, medical decision making, and the department course for this patient. I have also personally directed, reviewed, and agree with the discharge instructions and disposition. <Mitch Muir - Last Filed: 04/07/17 04:12> Disposition <Mitch Muir - Last Filed: 04/07/17 04:12> - Patient ED Disposition Is Patient to be Admitted: No - Disposition Disposition: Routine/Home Disposition Time: 05:14 - POA Present On Arrival: None <Wanda Waters - Last Filed: 04/07/17 05:14> - Clinical Impression Clinical Impression: Headache - Disposition Condition: STABLE Forms: [facility] (Paraguayan)
--- NOTE | 2017-04-07 04:12 | ED PDOC ---
HPI: Headache Time Seen by Provider: 04/07/17 03:34 Chief Complaint (Nursing): Headache Chief Complaint (Provider): Headache History Per: Patient Past Medical History Vital Signs: Last Vital Signs Temp 97.9 F 04/07/17 03:31 Pulse 101 H 04/07/17 03:31 Resp 18 04/07/17 03:31 BP 141/86 04/07/17 03:31 Pulse Ox 100 04/07/17 03:31 - Medical History PMH: Anxiety, Depression, Pancreatitis, Seizures, Chronic Pain Denies: Diabetes, Hepatitis, HIV, HTN, Chronic Kidney Disease, Sexually Transmitted Disease - Family History Family History: States: Unknown Family Hx - Immunization History Hx Tetanus Toxoid Vaccination: No Hx Influenza Vaccination: Yes Hx Pneumococcal Vaccination: Yes - Home Medications Home Medications: Ambulatory Orders Medication Instructions Recorded Divalproex [Depakote ER] 500 mg PO BID 04/03/15 Eslicarbazepine Acetate [Aptiom] 1 tab PO DAILY 01/09/17 Zolpidem [Ambien] 1 tab PO HS 01/09/17 hydrALAZINE [Apresoline] 1 tab PO DAILY 01/09/17 - Allergies Allergies/Adverse Reactions: Allergies Allergy/AdvReac Type Severity Reaction Status Date / Time No Known Allergies Allergy Verified 04/07/17 03:31 - ECG O2 Sat by Pulse Oximetry: 100 Disposition - Disposition Forms: [employer] (Pashto)
== END 2017-04-07 04:45 | disposition home or self-care (01) ==
LOC: H.ER 03:21
DX: R51 Headache (principal); F41.9 Anxiety disorder, unspecified

== ENCOUNTER 2017-06-30 09:19 | Observation (INO) | payer OTHER ==
[2017-06-30 09:20] VITALS: BMI 21.5
[2017-06-30 09:39] VITALS: TEMP 98.9
[2017-06-30] MEDS ORDERED: Sodium Chloride 0.9% 1,000 ML IV STA (09:45)
--- NOTE | 2017-06-30 09:56 | ED PDOC ---
HPI: Seizure Time Seen by Provider: 06/30/17 09:28 Chief Complaint (Nursing): Seizure Chief Complaint (Provider): Seizure History Per: Patient History/Exam Limitations: no limitations Number Of Seizures: Multiple Associated Symptoms: Injury As A Result Of Seizure Activity (laceration), Other (Bit lip) Additional Complaint(s): Bradly is a 37 y/o male who was brought to the ED for evaluation after multiple seizures (two last night, one this morning), during which he fell, and sustained multiple abrasions and a laceration to the right eyebrow. Prior to last night, patient states his last seizure had been 1 week ago. He reports taking medications (Depakote and Aptiom) as prescribed, and admits to using heroin this week. No alcohol use. Currently patient reports headache with some nausea, and upper back pain which is chronic for him. No vomiting, diarrhea, neck pain, leg pain, arm pain, dizziness, numbness, weakness, vision changes, chest pain, or shortness of breath. He also reports occasional dysuria and painful urination, but no testicular pain. PMD: Dr. Summers Past Medical History Reviewed: Historical Data, Nursing Documentation, Vital Signs Vital Signs: Last Vital Signs Temp 98.9 F 06/30/17 09:36 Pulse 97 H 06/30/17 11:18 Resp 18 06/30/17 11:18 BP 114/78 06/30/17 09:36 Pulse Ox 96 06/30/17 11:41 - Medical History PMH: Anxiety, Depression, Pancreatitis, Seizures, Chronic Pain Denies: Diabetes, Hepatitis, HIV, HTN, Chronic Kidney Disease, Sexually Transmitted Disease - Family History Family History: States: Unknown Family Hx - Social History Alcohol: None Drugs: Opiates (heroin) - Immunization History Hx Tetanus Toxoid Vaccination: No Hx Influenza Vaccination: Yes Hx Pneumococcal Vaccination: Yes - Home Medications Home Medications: Ambulatory Orders Medication Instructions Recorded Divalproex [Depakote ER] 750 mg PO BID 04/03/15 Eslicarbazepine Acetate [Aptiom] 500 mg PO DAILY 01/09/17 Alprazolam [Xanax] 1 mg PO HS 06/30/17 Clonazepam [Klonopin] 1 mg PO BID 06/30/17 - Allergies Allergies/Adverse Reactions: Allergies Allergy/AdvReac Type Severity Reaction Status Date / Time No Known Allergies Allergy Verified 06/30/17 09:36 Review of Systems ROS Statement: Except As Marked, All Systems Reviewed And Found Negative Constitutional: Negative for: Fever, Chills Cardiovascular: Negative for: Chest Pain Respiratory: Negative for: Cough, Shortness of Breath Gastrointestinal: Positive for: Nausea. Negative for: Vomiting, Diarrhea Genitourinary Male: Positive for: Dysuria. Negative for: Scrotal Pain, Penile Pain Musculoskeletal: Positive for: Back Pain (upper, chronic). Negative for: Neck Pain, Arm Pain, Leg Pain Skin: Positive for: Lesions (to head, s/p fall) Neurological: Positive for: Seizures, Headache. Negative for: Weakness, Numbness, Dizziness Physical Exam - Reviewed Nursing Documentation Reviewed: Yes Vital Signs Reviewed: Yes - Physical Exam Appears: Positive for: Non-toxic, No Acute Distress Head Exam: Positive for: NORMOCEPHALIC (with small abrasion to anterior lower lip. + Linear abrasion to right cheek, and swelling to right forehead. + Abrasion to right forehead. Right eyebrow w/ 1 cm lateral horizontal laceration) . Negative for: ATRAUMATIC Skin: Positive for: Normal Color, Warm, Dry Eye Exam: Positive for: Normal appearance, EOMI, PERRL Neck: Positive for: Normal, Painless ROM Cardiovascular/Chest: Positive for: Regular Rate, Rhythm. Negative for: Murmur Respiratory: Positive for: Normal Breath Sounds. Negative for: Respiratory Distress Gastrointestinal/Abdominal: Positive for: Normal Exam, Soft. Negative for: Tenderness Back: Positive for: Normal Inspection. Negative for: Other (gross tenderness or deformity ) Extremity: Positive for: Normal ROM. Negative for: Pedal Edema, Deformity Neurologic/Psych: Positive for: Alert, Oriented, Other (Answering all questions appropriately) - Laboratory Results Result Diagrams: 06/30/17 10:00 06/30/17 10:00 Interpretation Of Abn Labs: 34.2 valproic acid level; 25 bun - ECG ECG: Positive for: Interpreted By Me, Viewed By Me ECG Rhythm: Positive for: Normal ST Segment, Sinus Rhythm O2 Sat by Pulse Oximetry: 96 (RA) Pulse Ox Interpretation: Normal - CT Scan/US ct Other Rad Studies (CT/US): Read By Radiologist Other Rad Interpretation: no acute - Progress ED Course And Treament: 1150: Stable. AAOx3. Spoke with Dr. Beach. States no valproic or keppra at this time. Recommends aptiom 800mg. Not available in this hospital. Will advise pt. to bring his own if available. Dr. Bowers made aware. Will admit and give further orders when pt. reaches floor. Medical Decision Making Medical Decision Making: Time: 9:44 Initial Plan: --EKG --Alcohol serum --Urine drug screen --CMP --Valproic acid --CBC --Urine dip --Chest x-ray --NS IV 1000 ml at 1000 mls/hr --CT Head w/o contrast --CT C-spine w/o contrast Scribe Attestation: Documented by Catina Lujan, acting as a scribe for Jv Esteban MD Provider Scribe Attestation: All medical record entries made by the Scribe were at my direction and personally dictated by me. I have reviewed the chart and agree that the record accurately reflects my personal performance of the history, physical exam, medical decision making, and the department course for this patient. I have also personally directed, reviewed, and agree with the discharge instructions and disposition. Disposition - Clinical Impression Clinical Impression: Seizure, Laceration, Head injury - Patient ED Disposition Is Patient to be Admitted: Yes Counseled Patient/Family Regarding: Studies Performed, Diagnosis - Disposition Disposition Time: 11:56 Condition: FAIR - Pt Status Changed To: Hospital Disposition Of: Observation - POA Present On Arrival: Falls Or Trauma
[2017-06-30] MEDS ORDERED: Proshield Plus GEL TOP STA (10:07)
[2017-06-30 10:11] LABS: BASO # 0.1 K/uL (0.0-0.2); BASO % 1.1 % (0.0-2.0); EOS # 0.1 K/uL (0.0-0.7); EOS % 1.7 % (0.0-4.0); HEMATOCRIT 36.9 % (35.0-51.0); LYMPH # 1.7 K/uL (1.0-4.3); LYMPH % 32.8 % (20.0-40.0); MEAN CELL VOLUME 96.7 fl (80.0-94.0); MEAN CORPUSCULAR HEMOGLOBIN 32.8 pg (27.0-31.0); MEAN CORPUSCULAR HGB CONC 33.9 g/dL (33.0-37.0); MEAN PLATELET VOLUME 9.3 fl (7.2-11.7); MONO # 0.8 K/uL (0.0-0.8); NEUT # 2.5 K/uL (1.8-7.0); NEUT % 49.4 % (50.0-75.0); NRBC % 0.1 % (0.0-0.0); WHITE BLOOD COUNT 5.1 K/uL (4.8-10.8)
[2017-06-30 10:45] LABS: ALB/GLOB RATIO 1.2 (1.0-2.1); ALCOHOL SERUM < 10 mg/dl (0-10); ALKALINE PHOSPHATASE 49 U/L (38-126); ALT/SGPT 93 U/L (21-72); AST/SGOT 66 U/L (17-59); BILIRUBIN,TOTAL 0.2 mg/dl (0.2-1.3); BLOOD UREA NITROGEN 25 mg/dl (9-20); CALCIUM 8.8 mg/dL (8.4-10.2); CARBON DIOXIDE 30 mmol/L (22-30); CHLORIDE 104 mmol/L (98-107); GFR AFRICAN-AMERICAN > 60; GLUCOSE,RANDOM 118 mg/dL (75-110); POTASSIUM 4.4 MMOL/L (3.6-5.0); SODIUM 142 mmol/l (132-148); TOTAL PROTEIN 8.1 G/DL (6.3-8.2)
--- NOTE | 2017-06-30 11:11 | CARD ---
APPROVED REPORT EKG Measurement Heart [id number] <Conclusion> Sinus tachycardia Minimal voltage criteria for LVH, may be normal variant Borderline ECG
--- NOTE | 2017-06-30 11:14 | CT ---
PROCEDURE: CT HEAD WITHOUT CONTRAST. HISTORY: headache COMPARISON: Comparison is made to previous study dated 12/27/2016 TECHNIQUE: Axial computed tomography images were obtained through the head/brain without intravenous contrast. Radiation dose: Total exam DLP = 876.78 mGy-cm. This CT exam was performed using one or more of the following dose reduction techniques: Automated exposure control, adjustment of the mA and/or kV according to patient size, and/or use of iterative reconstruction technique. FINDINGS: HEMORRHAGE: No intracranial hemorrhage. BRAIN: No mass effect or edema. No atrophy or chronic microvascular ischemic changes. VENTRICLES: Unremarkable. No hydrocephalus. CALVARIUM: Unremarkable. PARANASAL SINUSES: Unremarkable as visualized. No significant inflammatory changes. MASTOID AIR CELLS: Unremarkable as visualized. No inflammatory changes. OTHER FINDINGS: None. IMPRESSION: No evidence of acute intracranial hemorrhage intracranial collection mass effect or midline shift.
--- NOTE | 2017-06-30 11:19 | CT ---
PROCEDURE: CT Cervical Spine without contrast HISTORY: Neck pain COMPARISON: None available. TECHNIQUE: Axial computed tomography images were obtained of the cervical spine without the use of intravenous contrast. Coronal and sagittal reformatted images were created and reviewed. Radiation dose: Total exam DLP = 366.39 mGy-cm. This CT exam was performed using one or more of the following dose reduction techniques: Automated exposure control, adjustment of the mA and/or kV according to patient size, and/or use of iterative reconstruction technique. FINDINGS: VERTEBRAE: No fracture. Normal alignment. No destructive bony lesion. DISCS/SPINAL CANAL/NEURAL FORAMINA: Osteophyte disc bulge complex noted at C4-C5 associated with mild spinal and left neural foraminal narrowing. [id number] degenerative disc changes more prominent at C4-C5. PARASPINAL SOFT TISSUES: Unremarkable. OTHER FINDINGS: None. IMPRESSION: No evidence of acute fracture or subluxation. [id number] degenerative disc and endplate changes noted more prominent at C4-C5 PE
--- NOTE | 2017-06-30 12:09 | RAD ---
HISTORY: dyspnea COMPARISON: Chest radiograph dated 12/27/2016 FINDINGS: LUNGS: No active pulmonary disease. PLEURA: No significant pleural effusion identified, no pneumothorax apparent. CARDIOVASCULAR: Normal. OSSEOUS STRUCTURES: No significant abnormalities. VISUALIZED UPPER ABDOMEN: Normal. OTHER FINDINGS: None. IMPRESSION: No active disease.
[2017-06-30 13:29] VITALS: BP 117/75; PULSE 88; RESP 17; O2SAT 99
--- NOTE | 2017-07-02 11:11 | CP.PCM.HP ---
History of Present Illness - History of Present Illness History of Present Illness: Bradly is a 37 y/o male who was brought to the ED for evaluation after multiple seizures (two last night, one this morning), during which he fell, and sustained multiple abrasions and a laceration to the right eyebrow. Prior to last night, patient states his last seizure had been 1 week ago. He reports taking medications (Depakote and Aptiom) as prescribed, and admits to using heroin this week. No alcohol use. Currently patient reports headache with some nausea, and upper back pain which is chronic for him. No vomiting, diarrhea, neck pain, leg pain, arm pain, dizziness, numbness, weakness, vision changes, chest pain, or shortness of breath. He also reports occasional dysuria and painful urination, but no testicular pain. Present on Admission - Present on Admission Any Indicators Present on Admission: No History of DVT/PE: No History of Uncontrolled Diabetes: No Urinary Catheter: No Decubitus Ulcer Present: No Review of Systems - Constitutional Constitutional: absent: Anorexia, Chills - Cardiovascular Cardiovascular: absent: Chest Pain - Respiratory Respiratory: absent: Dyspnea - Gastrointestinal Gastrointestinal: absent: Bloating Past Patient History - Infectious Disease Hx of Infectious Diseases: None - Tetanus Immunizations Tetanus Immunization: Unknown - Past Medical History & Family History Past Medical History?: Yes - Past Social History Alcohol: None Drugs: Opiates (heroin) - CARDIAC Hx Hypertension: No - PULMONARY Hx Tuberculosis: No - NEUROLOGICAL Hx Seizures: Yes - HEENT Hx HEENT Problems: No - RENAL Hx Chronic Kidney Disease: No - ENDOCRINE/METABOLIC Hx Endocrine Disorders: No - HEMATOLOGICAL/ONCOLOGICAL Hx Human Immunodeficiency Virus (HIV): No - INTEGUMENTARY Hx Dermatological Problems: No - MUSCULOSKELETAL/RHEUMATOLOGICAL Hx Musculoskeletal Disorders: No Hx Falls: Yes - GASTROINTESTINAL Hx Pancreatitis: Yes - GENITOURINARY/GYNECOLOGICAL Hx Sexually Transmitted Disorders: No - PSYCHIATRIC Hx Anxiety: Yes Hx Depression: Yes - SURGICAL HISTORY Hx Surgeries: No - ANESTHESIA Hx Anesthesia: No Hx Anesthesia Reactions: No Meds Allergies/Adverse Reactions: Allergies Allergy/AdvReac Type Severity Reaction Status Date / Time No Known Allergies Allergy Verified 06/30/17 09:36 Physical Exam - Constitutional Appears: Toxic, No Acute Distress - Neck Exam Neck exam: Positive for: Full Rom - Respiratory Exam Respiratory Exam: Clear to Auscultation Bilateral, NORMAL BREATHING PATTERN - Cardiovascular Exam Cardiovascular Exam: REGULAR RHYTHM. absent: Systolic Murmur - GI/Abdominal Exam GI & Abdominal Exam: absent: Tenderness Results - Vital Signs Recent Vital Signs: Last Vital Signs Temp 98.9 F 06/30/17 09:36 Pulse 88 06/30/17 13:24 Resp 17 06/30/17 13:24 BP 117/75 06/30/17 13:24 Pulse Ox 99 06/30/17 13:24 - Labs Result Diagrams: 06/30/17 10:00 06/30/17 10:00 Assessment & Plan - Assessment and Plan (Free Text) Assessment: A 37 year old male refractory and breakthrough seizure Plan: neuro check ativan iv prn neuro consult to optimize medicines. - Date & Time Date: 07/02/17 Time: 11:11
== END 2017-06-30 13:24 | disposition left against medical advice (07) ==
LOC: H.ER 09:19 → H.ERHOLD 11:54
PROVIDERS: ADMIT Internal Medicine; ATTEND Internal Medicine
DX: G40.909 Epilepsy, unspecified, not intractable, without status epilepticus (principal); S01.111A Laceration without foreign body of right eyelid and periocular area, initial encounter; W19.XXXA Unspecified fall, initial encounter; G89.29 Other chronic pain; F41.8 Other specified anxiety disorders; K85.90 Acute pancreatitis without necrosis or infection, unspecified
CPT/HCPCS: 70450; 71010; 72125; 80053; 80164; 80320; 85025; 90471; 90715; 93005; 96360; 99285; G0378; J7040

== ENCOUNTER 2017-07-20 12:07 | Emergency (ER) | payer OTHER ==
[2017-07-20 12:08] VITALS: BMI 21.5
--- NOTE | 2017-07-20 13:28 | ED PDOC ---
HPI: Altered Mental Status Time Seen by Provider: 07/20/17 12:52 Chief Complaint (Nursing): Altered Mental Status Chief Complaint (Provider): Seizure History Per: Patient Additional Complaint(s): Bradly is a 37 y/o male who was brought to the ED for evaluation after having a seizure, during which he fell, and sustaining a laceration to the left eyebrow. Prior to last night, patient states his last seizure had been 1 week ago. He reports taking medications (Depakote and Aptiom) as prescribed, and admits to using heroin every day this week. No alcohol use. Currently patient reports headache with some nausea, and upper back pain which is chronic for him. No vomiting, diarrhea, neck pain, leg pain, arm pain, dizziness, numbness, weakness, vision changes, chest pain, or shortness of breath. He also reports occasional dysuria and painful urination, but no testicular pain. Past Medical History Vital Signs: Last Vital Signs Temp 98 F 07/20/17 12:19 Pulse 112 H 07/20/17 12:19 Resp 18 07/20/17 12:19 BP 111/75 07/20/17 12:19 Pulse Ox 99 07/20/17 12:19 - Medical History PMH: Anxiety, Depression, Pancreatitis, Seizures, Chronic Pain Denies: Diabetes, Hepatitis, HIV, HTN, Chronic Kidney Disease, Sexually Transmitted Disease - Family History Family History: States: Unknown Family Hx - Immunization History Hx Tetanus Toxoid Vaccination: No Hx Influenza Vaccination: Yes Hx Pneumococcal Vaccination: Yes - Home Medications Home Medications: Ambulatory Orders Medication Instructions Recorded Eslicarbazepine Acetate [Aptiom] 1,200 mg PO DAILY 01/09/17 Alprazolam [Xanax] 2 mg PO HS 07/20/17 Divalproex [Depakote DR(*BID*)] 1,000 mg PO BID 07/20/17 - Allergies Allergies/Adverse Reactions: Allergies Allergy/AdvReac Type Severity Reaction Status Date / Time No Known Allergies Allergy Verified 06/30/17 09:36 - Laboratory Results Result Diagrams: 07/20/17 13:20 07/20/17 13:20 - ECG O2 Sat by Pulse Oximetry: 99 Medical Decision Making Medical Decision Making: IV access established and Pt paced on dye and chemical coordinator. Pt asleep throughout stay , arousable to verbal stimuli. Depakote level, subtherapeutic. Administered dosage PO while in ED. Head CT: Jeferson No acute intracranial abnormalities. No significant findings to account for the clinical presentation. No significant interval change compared to the prior examination(s). Admission advised on re-eval; however, Pt declined. Pt. is aaox3. Has capacity to make decisions. Does not want to be admitted or get further evaluation for his seizures. Will go against medical advice. Aware of possible or decreased functioning from his condition. Ambulated with no issues. Disposition - Clinical Impression Clinical Impression: Seizure, Heroin abuse - Patient ED Disposition Is Patient to be Admitted: Yes - Disposition Disposition: Against Medical Advice Disposition Time: 16:49 Condition: STABLE Instructions: Narcotic Abuse (ED), Epilepsy (ED) Forms: [employer] (Puerto Rican) - POA Present On Arrival: None
[2017-07-20 13:48] LABS: BASO % 0.8 % (0.0-2.0); EOS # 0.1 K/uL (0.0-0.7); EOS % 1.2 % (0.0-4.0); HEMATOCRIT 35.1 % (35.0-51.0); LYMPH # 1.1 K/uL (1.0-4.3); LYMPH % 22.1 % (20.0-40.0); MEAN CELL VOLUME 96.8 fl (80.0-94.0); MEAN CORPUSCULAR HEMOGLOBIN 33.3 pg (27.0-31.0); MEAN CORPUSCULAR HGB CONC 34.4 g/dL (33.0-37.0); MEAN PLATELET VOLUME 8.5 fl (7.2-11.7); MONO # 0.6 K/uL (0.0-0.8); MONO % 12.4 % (0.0-10.0); NEUT # 3.2 K/uL (1.8-7.0); NEUT % 63.5 % (50.0-75.0); NRBC % 0.1 % (0.0-0.0); RED CELL DISTRIBUTION WIDTH 13.6 % (11.5-14.5); WHITE BLOOD COUNT 5.1 K/uL (4.8-10.8)
[2017-07-20 13:54] LABS: ALB/GLOB RATIO 1.1 (1.0-2.1); ALCOHOL SERUM < 10 mg/dl (0-10); ALKALINE PHOSPHATASE 38 U/L (38-126); ALT/SGPT 64 U/L (21-72); AST/SGOT 45 U/L (17-59); BILIRUBIN,TOTAL 0.4 mg/dl (0.2-1.3); BLOOD UREA NITROGEN 15 mg/dl (9-20); CALCIUM 8.8 mg/dL (8.4-10.2); CARBON DIOXIDE 31 mmol/L (22-30); CHLORIDE 106 mmol/L (98-107); GFR AFRICAN-AMERICAN > 60; GLUCOSE,RANDOM 102 mg/dL (75-110); POTASSIUM 4.2 MMOL/L (3.6-5.0); SODIUM 139 mmol/l (132-148); TOTAL PROTEIN 7.7 G/DL (6.3-8.2)
--- NOTE | 2017-07-20 14:24 | CT ---
PROCEDURE: CT HEAD WITHOUT CONTRAST. HISTORY: seizure, head injury COMPARISON: 06/30/2017 TECHNIQUE: Axial computed tomography images were obtained through the head/brain without intravenous contrast. Radiation dose: Total exam DLP = 879.51 mGy-cm. This CT exam was performed using one or more of the following dose reduction techniques: Automated exposure control, adjustment of the mA and/or kV according to patient size, and/or use of iterative reconstruction technique. FINDINGS: HEMORRHAGE: No intracranial hemorrhage. BRAIN: No mass effect or edema. No atrophy or chronic microvascular ischemic changes. VENTRICLES: Unremarkable. No hydrocephalus. CALVARIUM: Unremarkable. PARANASAL SINUSES: Unremarkable as visualized. No significant inflammatory changes. MASTOID AIR CELLS: Unremarkable as visualized. No inflammatory changes. OTHER FINDINGS: None. IMPRESSION: Jeferson No acute intracranial abnormalities. No significant findings to account for the clinical presentation. No significant interval change compared to the prior examination(s).
[2017-07-20] MEDS ORDERED: Divalproex 250 mg DR(BID formulation) PO STA (16:26)
[2017-07-20 17:19] VITALS: BP 110/70; PULSE 78; RESP 20; TEMP 97.6; O2SAT 98
--- NOTE | 2017-07-20 18:49 | CARD ---
APPROVED REPORT EKG Measurement Heart [id number] <Conclusion> Normal sinus rhythm Minimal voltage criteria for LVH, may be normal variant Borderline ECG
== END 2017-07-20 17:21 | disposition home or self-care (01) ==
LOC: H.ER 12:07
DX: G40.909 Epilepsy, unspecified, not intractable, without status epilepticus (principal); S09.90XA Unspecified injury of head, initial encounter; W19.XXXA Unspecified fall, initial encounter; Y92.89 Other specified places as the place of occurrence of the external cause; F11.10 Opioid abuse, uncomplicated; F32.9 Major depressive disorder, single episode, unspecified; F41.9 Anxiety disorder, unspecified; G89.29 Other chronic pain; K85.90 Acute pancreatitis without necrosis or infection, unspecified

== ENCOUNTER 2017-08-26 21:06 | Emergency (ER) | payer MEDICAID, OTHER ==
[2017-08-26 21:07] VITALS: BMI 21.5
[2017-08-26 21:12] VITALS: BP 93/66; PULSE 93; RESP 18; TEMP 99.8; O2SAT 98
--- NOTE | 2017-08-26 22:51 | ED PDOC ---
HPI: Seizure Time Seen by Provider: 08/26/17 21:14 Chief Complaint (Nursing): Seizure Chief Complaint (Provider): Seizure History Per: Patient History/Exam Limitations: no limitations Recent Seizure Activity Began: Hours Ago: (5pm) Additional Complaint(s): 37 year old male with a history of epilepsy presents to the emergency department after having a seizure at 5pm. The seizure was induced from drug abuse. Had stool incontinence during the episode, typical for his seizures. Patient hit his head after the seizure but does not remember it. Claims to be fine now. States he is compliant with medications, but drug use precipitates his seizures. PMD: No Family Provider Past Medical History Reviewed: Historical Data, Nursing Documentation, Vital Signs Vital Signs: Last Vital Signs Temp 99.8 F H 08/26/17 21:08 Pulse 93 H 08/26/17 21:08 Resp 18 08/26/17 21:08 BP 93/66 L 08/26/17 21:08 Pulse Ox 98 08/27/17 00:57 - Medical History PMH: Anxiety, Depression, Pancreatitis, Seizures (Epilepsy), Chronic Pain Denies: Diabetes, Hepatitis, HIV, HTN, Chronic Kidney Disease, Sexually Transmitted Disease - Family History Family History: States: Unknown Family Hx - Social History Current smoker - smoking cessation education provided: Yes (Heavy Smoker) SMOKER/PACKS PER DAY:: 10 Alcohol: None Drugs: Opiates (heroine) - Immunization History Hx Tetanus Toxoid Vaccination: No Hx Influenza Vaccination: Yes Hx Pneumococcal Vaccination: Yes - Home Medications Home Medications: Ambulatory Orders Medication Instructions Recorded Eslicarbazepine Acetate [Aptiom] 1,200 mg PO DAILY 01/09/17 Alprazolam [Xanax] 2 mg PO HS 07/20/17 Divalproex [Depakote DR(*BID*)] 1,000 mg PO BID 07/20/17 Divalproex [Depakote DR] 500 mg PO BID 14 Days tcp 07/24/17 Gabapentin [Neurontin] 100 mg PO BID 14 Days cap 07/24/17 - Allergies Allergies/Adverse Reactions: Allergies Allergy/AdvReac Type Severity Reaction Status Date / Time No Known Allergies Allergy Verified 06/30/17 09:36 Review of Systems ROS Statement: Except As Marked, All Systems Reviewed And Found Negative Genitourinary Male: Positive for: Incontinence (Stool) Neurological: Positive for: Seizures Physical Exam - Reviewed Nursing Documentation Reviewed: Yes Vital Signs Reviewed: Yes - Physical Exam Appears: Positive for: No Acute Distress Head Exam: Positive for: NORMOCEPHALIC (2cm linear laceration of upper left brow ). Negative for: ATRAUMATIC (hit head) Skin: Positive for: Normal Color, Warm, DRY Eye Exam: Positive for: EOMI, Normal appearance, PERRL Neck: Positive for: Normal, Painless ROM Cardiovascular/Chest: Positive for: Regular Rate, Rhythm. Negative for: Murmur Respiratory: Positive for: Normal Breath Sounds. Negative for: Accessory Muscle Use, Respiratory Distress Gastrointestinal/Abdominal: Positive for: Normal Exam, Bowel Sounds, Soft. Negative for: Distended Back: Positive for: Normal Inspection. Negative for: Vertebral Tenderness Extremity: Positive for: Normal ROM. Negative for: Pedal Edema Neurologic/Psych: Positive for: Alert, bloom conveyor operator II-XII (intact), Oriented, Cerebellar Tests (normal), Gait (steady). Negative for: Motor/Sensory Deficits , Aphasia, Facial Droop - ECG O2 Sat by Pulse Oximetry: 98 (RA) Pulse Ox Interpretation: Normal Medical Decision Making Medical Decision Making: Initial Impression: Seizure in setting of drug abuse Time: 21:21 Initial Plan: --CT Head without contrast --CT of Maxillofacial without contrast --Glucose, Blood, POC Patient is choosing to leave against medical advice. 2300 Leaving Against Medical Advice (AMA): This patient is choosing to leave against medical advice. The EP has personally explained to the pt that choosing to do so may result in permanent bodily harm or . The EP discussed at great length that without further evaluation and monitoring there may be unforeseen circumstances and/or deterioration causing permanent bodily harm or as a result of their choice. The pt verbalized these risks back to the physician in laymans terms. The pt is alert , oriented, and shows the mental capacity to make clear decisions regarding the pts health care at this time. The pt continues to wish to leave against medical advice. In light of the pts decision to leave AMA, follow-up has been arranged and the pt is aware of the importance of following up as instructed. The pt has been advised that they should return to the ED immediately if they change their mind at any time, or if their condition begins to change or worsen in any way. Patient left ER prior to receiving discharge instructions. Scribe Attestation: Documented by Minerva Hauser, acting as a scribe for Jose Wallace MD Provider Scribe Attestation: All medical record entries made by the Scribe were at my direction and personally dictated by me. I have reviewed the chart and agree that the record accurately reflects my personal performance of the history, physical exam, medical decision making, and the department course for this patient. I have also personally directed, reviewed, and agree with the discharge instructions and disposition. Disposition - Clinical Impression Clinical Impression: Drug-induced seizure - Patient ED Disposition Is Patient to be Admitted: No - Disposition Referrals: [facility] [Other] Disposition: Against Medical Advice Disposition Time: 22:30 Condition: STABLE Instructions: Recurrent Seizures in Adults (ED) Forms: [employer] (Marshallese) Laceration - Laceration Repair No standard instances Wound Length (In cm): 2 Description Of Wound: Linear Wound Examination: Irrigated With Saline Wound Closure: Steri Strips Wound Complexity: Simple
== END 2017-08-26 22:45 | disposition left against medical advice (07) ==
LOC: H.ER 21:06
DX: G40.909 Epilepsy, unspecified, not intractable, without status epilepticus (principal); F32.9 Major depressive disorder, single episode, unspecified; F41.9 Anxiety disorder, unspecified; G89.29 Other chronic pain; K85.90 Acute pancreatitis without necrosis or infection, unspecified

== ENCOUNTER 2017-10-01 19:23 | Emergency (ER) | payer OTHER ==
[2017-10-01 19:23] VITALS: BMI 21.5
[2017-10-01 19:30] VITALS: BP 115/78; PULSE 128; RESP 18; TEMP 98.3; O2SAT 99
== END 2017-10-01 19:47 | disposition left against medical advice (07) ==
LOC: H.ER 19:23
DX: Z02.89 Encounter for other administrative examinations (principal)

== ENCOUNTER 2017-10-29 18:04 | Emergency (ER) | payer OTHER ==
[2017-10-29 18:04] VITALS: BMI 21.5
[2017-10-29 18:13] VITALS: BP 123/74; PULSE 115; RESP 18; TEMP 98.4; O2SAT 100
--- NOTE | 2017-10-29 18:30 | ED PDOC ---
HPI: Seizure Time Seen by Provider: 10/29/17 18:09 Chief Complaint (Nursing): Seizure Chief Complaint (Provider): Seizure History Per: Patient, EMS History/Exam Limitations: no limitations Recent Seizure Activity Began: Just Before Arrival Number Of Seizures: One Length Of Seizures (Duration): Unknown Quality Of Seizure: Generalized Precipitating Factor(s): Recent Street Drugs Associated Symptoms: denies: Incontinence Of Urine, Incontinence Of Stool Post-ictal Period: Yes Additional Complaint(s): 37 year old with a past medical history of seizure disorder and heroin abuse is brought into the emergency department by EMS post seizure. As per EMS the patient was found in the laundry room of his apartment building having a seizure. Witnesses state that he hit his head on the radiator. EMS reports that the patient was post-ictal on their arrival but has since become more lucid and alert. Patient states that he is compliant with his medication but heroin triggers his seizures. He admits to using heroin prior to seizure. Denies chest pain, headache, focal weakness and urine incontinence. Patient does have some mild oral bleeding. Patient states that he does not want to be evaluated in the emergency department. PMD: Lew Neurologist: Lew Against Medical Advice - AMA Patient Left Against Medical Advice: The patient declines admission to the hospital and wishes to leave the Emergency Department. This action is against my medical advice. This decision was made with informed refusal. The patient was told that admission to the hospital is necessary. Explanation of the reasons why were discussed. The risks of leaving were explained to the patient and include, but are not limited to, worsening of known or currently unknown conditions, permanent disability and from undiagnosed or untreated conditions. The patient has the capacity to make this informed decision and understands my explanation of the current medical problem and risks of leaving. The patient voluntarily accepts these risks and signed an AMA form documenting our conversation. The patient was given the opportunity to ask questions and reconsider. The patient was encouraged to return to the Emergency Department at any time for further care. Past Medical History Reviewed: Historical Data, Nursing Documentation, Vital Signs Vital Signs: Last Vital Signs Temp 98.4 F 10/29/17 18:08 Pulse 115 H 10/29/17 18:08 Resp 18 10/29/17 18:08 BP 123/74 10/29/17 18:08 Pulse Ox 100 10/29/17 18:41 - Medical History PMH: Anxiety, Depression, Pancreatitis, Seizures (Epilepsy), Chronic Pain Denies: Diabetes, Hepatitis, HIV, HTN, Chronic Kidney Disease, Sexually Transmitted Disease - Surgical History Surgical History: No Surg Hx - Family History Family History: States: Unknown Family Hx - Social History Current smoker - smoking cessation education provided: No Ex-Smoker (has not smoked in the last 12 months): No Alcohol: Social Drugs: Other (Heroin) - Immunization History Hx Tetanus Toxoid Vaccination: No Hx Influenza Vaccination: Yes Hx Pneumococcal Vaccination: Yes - Home Medications Home Medications: Ambulatory Orders Medication Instructions Recorded Eslicarbazepine Acetate [Aptiom] 1,200 mg PO DAILY 01/09/17 Alprazolam [Xanax] 2 mg PO HS 07/20/17 Divalproex [Depakote DR(*BID*)] 1,000 mg PO BID 07/20/17 Divalproex [Depakote DR] 500 mg PO BID 14 Days tcp 07/24/17 Gabapentin [Neurontin] 100 mg PO BID 14 Days cap 07/24/17 - Allergies Allergies/Adverse Reactions: Allergies Allergy/AdvReac Type Severity Reaction Status Date / Time No Known Allergies Allergy Verified 10/29/17 18:08 Review of Systems ROS Statement: Except As Marked, All Systems Reviewed And Found Negative Constitutional: Negative for: Fever, Chills Cardiovascular: Negative for: Chest Pain, Palpitations Neurological: Positive for: Seizures (x1). Negative for: Weakness, Headache Physical Exam - Reviewed Nursing Documentation Reviewed: Yes Vital Signs Reviewed: Yes - Physical Exam Appears: Positive for: Non-toxic, No Acute Distress Head Exam: Negative for: ATRAUMATIC (2 abrasions and hematoma to scalp; healing wound to left lateral brow ) Skin: Positive for: Warm, Dry Eye Exam: Positive for: EOMI, PERRL ENT: Positive for: Other (superficial abrasion distal tongue) Neck: Positive for: Painless ROM, Supple Cardiovascular/Chest: Positive for: Tachycardia (regular rhythm). Negative for : Murmur Respiratory: Positive for: Normal Breath Sounds. Negative for: Wheezing Gastrointestinal/Abdominal: Positive for: Soft. Negative for: Tenderness Back: Positive for: Normal Inspection. Negative for: Muscle Spasm Extremity: Positive for: Normal ROM. Negative for: Deformity Lymphatic: Negative for: Adenopathy Neurologic/Psych: Positive for: Alert (AAO x3), fish net maker II-XII (All intact), Oriented, Cerebellar Tests (normal), Gait (steady). Negative for: Motor/ Sensory Deficits - ECG O2 Sat by Pulse Oximetry: 100 (RA) Pulse Ox Interpretation: Normal Medical Decision Making Medical Decision Makin Initial impression 37 year old male presenting with seizure and head injury Initial Plan: * CT Head w/o Contrast * 1:1 Observation * Bloodwork: electrolytes, * Reevaluation 1824 Patient requesting to leave ER and have no evaluation or treatment, advised that he at least needs CT of the head. Patient will likely leave against medical advice status post CT scan. Accession No. : [id number] Patient Name / ID : JAIDA JOYCE / [id number] Exam Date : 10/29/2017 18:33:24 ( Approved ) Study Comment : Sex / Age : M / 37Y Creator : Barb Schwartz MD Dictator : Bilingual Instructor : Superintendent Sanitation : Barb Schwartz MD Approver2 : Report Date : 10/29/2017 20:09:00 My Comment : [facility] Division of Radiology [address] [place] [address] Tel. no. Patient Name: ISIAH SENA Pt. Address: [address] [place] [address]. Rec #: [id number] [place] [address]: Zachariah BAXTER, Wanda Dunaway Pt CELL Order Location: [facility] : 1980 Male Age: 37 Order #: [id number] Reason for exam: head injury CT Scan HEAD W/O CONTRAST Exam Date: 10/29/17 This imaging exam was performed at [facility] EXAM: CT Head Without Intravenous Contrast CLINICAL HISTORY: 37 years old, male; Pain; Headache; Additional info: Head injury TECHNIQUE: Axial computed tomography images of the head/brain without intravenous contrast. All CT scans at this facility use one or more dose reduction techniques, viz.: automated exposure control; ma/kV adjustment per patient size (including targeted exams where dose is matched to indication; i.e. head); or iterative reconstruction technique. COMPARISON: CT - HEAD W/O CONTRAST 2015-11-27 22:07 FINDINGS: Brain: Focus of encephalomalacia in the left frontal lobe, series 2 image 14, similar appearance to prior study. No hemorrhage. No edema. Ventricles: No hydrocephalus. Bones: Skull is intact. Sinuses: No acute sinusitis. Mastoid air cells: No mastoid effusion. IMPRESSION: No CT evidence of acute intracranial abnormality. Focus of encephalomalacia in the left frontal lobe, similar appearance to prior study. Dictated By: Barb Schwartz MD Dictated Date/Time: 10/29/172008 Signed By: Barb Schwartz Date Signed: 2008 Transcribed By: KIERA Transcribe Date/Time : 10/29/172008 CHILO/JOSH On reeval pt continues to have tachycardia, but insists on leaving. Refusing further workup. He is oriented x 3, able to understand risks of leaving without further evaluation, and signed out AMA. Advised on dangers of drugs and that he can return to ER at anytime for evaluation. Documented by Dalia Fry acting as a scribe for Wanda Soni MD. All medical record entries made by the Scribe were at my direction and personally dictated by me. I have reviewed the chart and agree that the record accurately reflects my personal performance of the history, physical exam, medical decision making, and the department course for this patient. I have also personally directed, reviewed, and agree with the discharge instructions and disposition. Disposition - Clinical Impression Clinical Impression: Opiate addiction, Seizure disorder, Drug-induced seizure Counseled Patient/Family Regarding: Studies Performed, Diagnosis, Need For Followup - Disposition Disposition: Against Medical Advice Disposition Time: 18:45 Condition: UNKNOWN Additional Instructions: REGRESA A LA BILL DE EMERGENCIA INMEDIATO POR MAS EVALUACIONES Y TRATIMIENTE Instructions: Seizures, Opioid Use Disorder, Leaving Against Medical Advice Forms: [employer] (Irish) Print Language: GERMAN
--- NOTE | 2017-10-29 20:09 | CT ---
EXAM: CT Head Without Intravenous Contrast CLINICAL HISTORY: 37 years old, male; Pain; Headache; Additional info: Head injury TECHNIQUE: Axial computed tomography images of the head/brain without intravenous contrast. All CT scans at this facility use one or more dose reduction techniques, viz.: automated exposure control; ma/kV adjustment per patient size (including targeted exams where dose is matched to indication; i.e. head); or iterative reconstruction technique. COMPARISON: CT - HEAD W/O CONTRAST 2015-11-27 22:07 FINDINGS: Brain: Focus of encephalomalacia in the left frontal lobe, series 2 image 14, similar appearance to prior study. No hemorrhage. No edema. Ventricles: No hydrocephalus. Bones: Skull is intact. Sinuses: No acute sinusitis. Mastoid air cells: No mastoid effusion. IMPRESSION: No CT evidence of acute intracranial abnormality. Focus of encephalomalacia in the left frontal lobe, similar appearance to prior study.
== END 2017-10-29 18:45 | disposition left against medical advice (07) ==
LOC: H.ER 18:04
DX: F11.20 Opioid dependence, uncomplicated (principal); G40.509 Epileptic seizures related to external causes, not intractable, without status epilepticus; F32.9 Major depressive disorder, single episode, unspecified; F41.9 Anxiety disorder, unspecified; G89.29 Other chronic pain; K85.90 Acute pancreatitis without necrosis or infection, unspecified; S09.90XA Unspecified injury of head, initial encounter; W19.XXXA Unspecified fall, initial encounter; Y92.89 Other specified places as the place of occurrence of the external cause

== ENCOUNTER 2017-11-03 14:07 | Emergency (ER) | payer OTHER ==
[2017-11-03 14:07] VITALS: BMI 21.5
[2017-11-03 14:13] VITALS: BP 119/67; PULSE 110; RESP 16; TEMP 98; O2SAT 99
--- NOTE | 2017-11-03 14:39 | ED PDOC ---
Lower Extremity Pain/Injury Time Seen by Provider: 11/03/17 14:29 Chief Complaint (Nursing): Seizure Additional Complaint(s): 37yo M with PMHx seizure, IVDA heroin c/o left hip pain. IVDA heroin 6AM today, took anti epilectics today (2 meds which includes depakote), had seizure 1hr ago. Laying in bed when seizure began, +LOC, not witnessed, woke up on the floor with left hip pain. Denies pain elsewhere. Denies fever, chills, n/v, chest pain, SOB, URI symptoms. Last CT head with no acute change. left hip pain , constant, no radiation, sharp, took ibuprofen and tramadol 50mg 1 hr ago ( mother's meds). Denies bladder/bowel incontinence PCP: Dr. Oliva Braswell Past Medical History Reviewed: Historical Data, Nursing Documentation, Vital Signs Vital Signs: Last Vital Signs Temp 98 F 11/03/17 14:09 Pulse 110 H 11/03/17 14:09 Resp 16 11/03/17 14:09 BP 119/67 11/03/17 14:09 Pulse Ox 99 11/03/17 14:09 - Medical History PMH: Anxiety, Depression, Pancreatitis, Seizures (Epilepsy), Chronic Pain Denies: Diabetes, Hepatitis, HIV, HTN, Chronic Kidney Disease, Sexually Transmitted Disease - Family History Family History: States: Unknown Family Hx - Immunization History Hx Tetanus Toxoid Vaccination: No Hx Influenza Vaccination: Yes Hx Pneumococcal Vaccination: Yes - Home Medications Home Medications: Ambulatory Orders Medication Instructions Recorded Eslicarbazepine Acetate [Aptiom] 1,200 mg PO DAILY 01/09/17 Alprazolam [Xanax] 2 mg PO HS 07/20/17 Divalproex [Depakote DR(*BID*)] 1,000 mg PO BID 07/20/17 Divalproex [Depakote DR] 500 mg PO BID 14 Days tcp 07/24/17 Gabapentin [Neurontin] 100 mg PO BID 14 Days cap 07/24/17 Ibuprofen [Motrin Tab] 600 mg PO Q8 PRN #15 tab 11/03/17 - Allergies Allergies/Adverse Reactions: Allergies Allergy/AdvReac Type Severity Reaction Status Date / Time No Known Allergies Allergy Verified 10/29/17 18:08 Review of Systems ROS Statement: Except As Marked, All Systems Reviewed And Found Negative Musculoskeletal: Positive for: Other (left hip pain) Neurological: Positive for: Seizures Physical Exam - Reviewed Nursing Documentation Reviewed: Yes Vital Signs Reviewed: Yes - Physical Exam Appears: Positive for: Well, Non-toxic Head Exam: Positive for: ATRAUMATIC, NORMAL INSPECTION Skin: Positive for: Warm, Dry Eye Exam: Positive for: Normal appearance, EOMI, PERRL ENT: Positive for: TM Is/Are (WNL). Negative for: Pharyngeal Erythema, Tonsillar Exudate Neck: Positive for: Normal, Painless ROM, Supple Cardiovascular/Chest: Positive for: Regular Rate, Rhythm, Chest Non Tender Respiratory: Positive for: Normal Breath Sounds. Negative for: Decreased Breath Sounds Gastrointestinal/Abdominal: Positive for: Normal Exam, Bowel Sounds, Soft Back: Positive for: Normal Inspection. Negative for: Vertebral Tenderness Extremity: Positive for: Normal ROM. Negative for: Tenderness Lymphatic: Negative for: Adenopathy Neurologic/Psych: Positive for: Alert, explosives engineer II-XII, Oriented, Gait (antalgic). Negative for: Motor/Sensory Deficits Comments: left hip: TTP along greater trochanter, not able to perform FADIR/FABERE/log roll negative straight leg - Laboratory Results Result Diagrams: 11/03/17 15:01 11/03/17 15:01 - ECG O2 Sat by Pulse Oximetry: 99 Medical Decision Making Medical Decision Makin DDx seizure, left hip pain, hip bursitis/strain Xray left hip, pelvis pt took ibuprofen and tramadol 1hr ago CBC, BMP Reassessment 1512 Xray left hip, pelvis no fx CBC, baseline leukopenia BMP wnl FU PCP and neuro Disposition - Clinical Impression Clinical Impression: Left hip pain - Disposition Disposition Time: 15:15 Condition: STABLE Additional Instructions: FU PCP and neurology within 1 week Prescriptions: Ibuprofen [Motrin Tab] 600 mg PO Q8 PRN #15 tab PRN Reason: Pain, Mild (1-3) Instructions: Hip Pain (DC) Forms: [employer] (Thai), [facility] ED School/Work Excuse Print Language: GHANAIAN
--- NOTE | 2017-11-03 15:00 | RAD ---
PROCEDURE: Left Hip X-ray Radiographs. HISTORY: trauma COMPARISON: CT scan of the abdomen pelvis dated 09/19/2015. FINDINGS: BONES: No acute fracture. JOINTS: Unremarkable. SOFT TISSUES: Normal. OTHER FINDINGS: None. IMPRESSION: No demonstrated fracture or dislocation.
[2017-11-03 15:08] LABS: BASO % 0.4 % (0.0-2.0); EOS % 0.3 % (0.0-4.0); HEMOGLOBIN 12.2 g/dL (12.0-18.0); LYMPH # 1.1 K/uL (1.0-4.3); LYMPH % 23.1 % (20.0-40.0); MEAN CELL VOLUME 96.1 fl (80.0-94.0); MEAN CORPUSCULAR HGB CONC 34.3 g/dL (33.0-37.0); MEAN PLATELET VOLUME 8.6 fl (7.2-11.7); MONO # 0.4 K/uL (0.0-0.8); MONO % 8.7 % (0.0-10.0); NEUT # 3.1 K/uL (1.8-7.0); NEUT % 67.5 % (50.0-75.0); RBC 3.71 Mil/uL (4.40-5.90); RED CELL DISTRIBUTION WIDTH 13.4 % (11.5-14.5); WHITE BLOOD COUNT 4.6 K/uL (4.8-10.8)
[2017-11-03 15:17] LABS: ALBUMIN 3.9 g/dL (3.5-5.0); ALT/SGPT 35 U/L (21-72); AST/SGOT 32 U/L (17-59); BLOOD UREA NITROGEN 12 mg/dl (9-20); CALCIUM 9.1 mg/dL (8.4-10.2); GFR AFRICAN-AMERICAN > 60; GFR NON-AFRICAN AMERICAN > 60
== END 2017-11-03 15:53 | disposition home or self-care (01) ==
LOC: H.ER 14:07
DX: M25.552 Pain in left hip (principal); G89.29 Other chronic pain; G40.909 Epilepsy, unspecified, not intractable, without status epilepticus

== ENCOUNTER 2017-12-15 01:23 | Emergency (ER) | payer OTHER ==
[2017-12-15 01:24] VITALS: BMI 21.5
[2017-12-15 01:38] VITALS: BP 97/60; PULSE 92; RESP 16; TEMP 98.2; O2SAT 100
--- NOTE | 2017-12-15 01:53 | ED PDOC ---
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 EMS describes post-ictal state status post seizure. Upon arrival to ED, patient notes that he feels well and denies all medical complaints. (-) tongue biting or urinary incontinence. Patient denies drug use in the last 24 hours, but admits to heroin use otherwise. PCP: None Past Medical History Reviewed: Historical Data, Nursing Documentation, Vital Signs Vital Signs: Last Vital Signs Temp 98.2 F 12/15/17 01:34 Pulse 92 H 12/15/17 01:34 Resp 16 12/15/17 01:34 BP 97/60 L 12/15/17 01:34 Pulse Ox 100 12/15/17 02:57 - Medical History PMH: Anxiety, Depression, Pancreatitis, Seizures (Epilepsy), Chronic Pain Denies: Diabetes, Hepatitis, HIV, HTN, Chronic Kidney Disease, Sexually Transmitted Disease - Family History Family History: States: Unknown Family Hx - Social History Current smoker - smoking cessation education provided: Yes Ex-Smoker (has not smoked in the last 12 months): No Drugs: Opiates - Immunization History Hx Tetanus Toxoid Vaccination: No Hx Influenza Vaccination: Yes Hx Pneumococcal Vaccination: Yes - Home Medications Home Medications: Ambulatory Orders Medication Instructions Recorded Eslicarbazepine Acetate [Aptiom] 1,200 mg PO DAILY 01/09/17 Alprazolam [Xanax] 2 mg PO HS 07/20/17 Divalproex [Depakote DR(*BID*)] 1,000 mg PO BID 07/20/17 Divalproex [Depakote DR] 500 mg PO BID 14 Days tcp 07/24/17 Gabapentin [Neurontin] 100 mg PO BID 14 Days cap 07/24/17 Ibuprofen [Motrin Tab] 600 mg PO Q8 PRN #15 tab 11/03/17 - Allergies Allergies/Adverse Reactions: Allergies Allergy/AdvReac Type Severity Reaction Status Date / Time No Known Allergies Allergy Unverified 12/15/17 01:34 Review of Systems ROS Statement: Except As Marked, All Systems Reviewed And Found Negative Neurological: Positive for: Seizures Physical Exam - Reviewed Nursing Documentation Reviewed: Yes Vital Signs Reviewed: Yes - Physical Exam Appears: Positive for: Non-toxic, No Acute Distress Skin: Positive for: Normal Color, Warm, Dry Eye Exam: Positive for: Normal appearance, EOMI, PERRL ENT: Positive for: Normal ENT Inspection Neck: Positive for: Normal, Painless ROM, Supple Cardiovascular/Chest: Positive for: Regular Rate, Rhythm. Negative for: Murmur Respiratory: Positive for: Normal Breath Sounds. Negative for: Respiratory Distress Gastrointestinal/Abdominal: Positive for: Normal Exam, Soft. Negative for: Tenderness Extremity: Positive for: Normal ROM. Negative for: Deformity Neurologic/Psych: Positive for: Alert, slots manager II-XII (intact), Oriented, Gait ( steady). Negative for: Motor/Sensory Deficits - Laboratory Results Result Diagrams: 12/15/17 02:27 12/15/17 02:27 - ECG O2 Sat by Pulse Oximetry: 100 (RA) Pulse Ox Interpretation: Normal Medical Decision Making Medical Decision Makin Initial impression: status post seizure in setting of known epilepsy Initial plan: * EKG * EtOH serum * Labs * UDrug screen * Valproic acid * Accucheck 0256 Upon re-evaluation patient has been seizure-free for length of stay in ED. Patient is requesting discharge and confirms he has an existing appointment with his neurologist. He is unwilling to await for results of Valproic Acid level. Patient is stable for discharge home. Condition: stable Scribe Attestation: Documented by Bernadette Sanchez acting as a scribe for Mitch Muir MD. Scribe Attestation: All medical record entries made by the Scribe were at my direction and personally dictated by me. I have reviewed the chart and agree that the record accurately reflects my personal performance of the history, physical exam, medical decision making, and the department course for this patient. I have also personally directed, reviewed, and agree with the discharge instructions and disposition. Disposition - Clinical Impression Clinical Impression: Epileptic seizures - Patient ED Disposition Is Patient to be Admitted: No - Disposition Disposition: Routine/Home Disposition Time: 03:00 Condition: STABLE Instructions: Epilepsy in Adults Forms: [facility] (Persian) Print Language: GUYANESE
[2017-12-15 02:30] LABS: BASO % 0.5 % (0.0-2.0); EOS % 0.7 % (0.0-4.0); HEMOGLOBIN 14.2 g/dL (12.0-18.0); LYMPH # 0.9 K/uL (1.0-4.3); LYMPH % 21.2 % (20.0-40.0); MEAN CELL VOLUME 95.1 fl (80.0-94.0); MEAN CORPUSCULAR HGB CONC 34.7 g/dL (33.0-37.0); MEAN PLATELET VOLUME 8.9 fl (7.2-11.7); MONO # 0.5 K/uL (0.0-0.8); MONO % 11.1 % (0.0-10.0); NEUT # 2.8 K/uL (1.8-7.0); NEUT % 66.5 % (50.0-75.0); RBC 4.3 Mil/uL (4.40-5.90); RED CELL DISTRIBUTION WIDTH 13.8 % (11.5-14.5); WHITE BLOOD COUNT 4.2 K/uL (4.8-10.8)
[2017-12-15 02:42] LABS: ALBUMIN 4.5 g/dL (3.5-5.0); ALT/SGPT 65 U/L (21-72); AST/SGOT 62 U/L (17-59); BLOOD UREA NITROGEN 9 mg/dl (9-20); GFR AFRICAN-AMERICAN > 60; GFR NON-AFRICAN AMERICAN > 60
--- NOTE | 2017-12-15 17:51 | CARD ---
APPROVED REPORT EKG Measurement Heart [id number] <Conclusion> Sinus rhythm with marked sinus arrhythmia Otherwise normal ECG
== END 2017-12-15 03:17 | disposition home or self-care (01) ==
LOC: H.ER 01:23
DX: G40.909 Epilepsy, unspecified, not intractable, without status epilepticus (principal); G89.29 Other chronic pain; F17.200 Nicotine dependence, unspecified, uncomplicated; Z86.59 Personal history of other mental and behavioral disorders

== ENCOUNTER 2017-12-15 05:56 | Emergency (ER) | payer OTHER ==
[2017-12-15 05:56] VITALS: BMI 21.5
[2017-12-15 06:01] VITALS: TEMP 98.4
--- NOTE | 2017-12-15 06:23 | ED PDOC ---
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 Patient presented to the ED for a similar complaint earlier today and was discharged after being seizure-free for the duration of his visit. Upon discharge, Depakote level was unavailable. Patient states that after discharge he experienced another seizure and was brought into the ED by EMS. Upon ED arrival patient notes feeling well sans mild dizziness. PCP: None Past Medical History Reviewed: Historical Data, Nursing Documentation, Vital Signs Vital Signs: Last Vital Signs Temp 98.4 F 12/15/17 05:58 Pulse 81 12/15/17 07:25 Resp 18 12/15/17 07:25 BP 119/64 12/15/17 07:25 Pulse Ox 100 12/15/17 07:25 - Medical History PMH: Anxiety, Depression, Pancreatitis, Seizures (Epilepsy), Chronic Pain Denies: Diabetes, Hepatitis, HIV, HTN, Chronic Kidney Disease, Sexually Transmitted Disease - Family History Family History: States: Unknown Family Hx - Social History Drugs: Opiates - Immunization History Hx Tetanus Toxoid Vaccination: No Hx Influenza Vaccination: Yes Hx Pneumococcal Vaccination: Yes - Home Medications Home Medications: Ambulatory Orders Medication Instructions Recorded Eslicarbazepine Acetate [Aptiom] 1,200 mg PO DAILY 01/09/17 Alprazolam [Xanax] 2 mg PO HS 07/20/17 Divalproex [Depakote DR(*BID*)] 1,000 mg PO BID 07/20/17 Divalproex [Depakote DR] 500 mg PO BID 14 Days tcp 07/24/17 Gabapentin [Neurontin] 100 mg PO BID 14 Days cap 07/24/17 Ibuprofen [Motrin Tab] 600 mg PO Q8 PRN #15 tab 11/03/17 - Allergies Allergies/Adverse Reactions: Allergies Allergy/AdvReac Type Severity Reaction Status Date / Time No Known Allergies Allergy Unverified 12/15/17 01:34 Review of Systems ROS Statement: Except As Marked, All Systems Reviewed And Found Negative Neurological: Positive for: Seizures Physical Exam - Reviewed Nursing Documentation Reviewed: Yes Vital Signs Reviewed: Yes - Physical Exam Appears: Positive for: Non-toxic, No Acute Distress Skin: Positive for: Normal Color, Warm, Dry Cardiovascular/Chest: Positive for: Regular Rate, Rhythm Respiratory: Positive for: Normal Breath Sounds. Negative for: Respiratory Distress Gastrointestinal/Abdominal: Positive for: Soft. Negative for: Tenderness Extremity: Positive for: Normal ROM. Negative for: Deformity Neurologic/Psych: Positive for: Alert, Oriented. Negative for: Motor/Sensory Deficits - ECG O2 Sat by Pulse Oximetry: 98 (RA) Pulse Ox Interpretation: Normal Medical Decision Making Medical Decision Makin Initial impression: breakthrough seizure in setting of history of epilepsy Initial plan: * Depakote 500mg PO due to subtherapeutic level of valproic acid 0700 Upon re-evaluation patient notes improvement in symptoms. Patient is stable for discharge and will follow up with personal neurologist. Return precautions given. Scribe Attestation: Documented by Bernadette Sanchez acting as a scribe for Mitch Muir MD. Scribe Attestation: All medical record entries made by the Scribe were at my direction and personally dictated by me. I have reviewed the chart and agree that the record accurately reflects my personal performance of the history, physical exam, medical decision making, and the department course for this patient. I have also personally directed, reviewed, and agree with the discharge instructions and disposition. Disposition - Clinical Impression Clinical Impression: Recurrent seizures - Disposition Disposition: Routine/Home Disposition Time: 07:00 Condition: IMPROVED Instructions: Epilepsy in Adults Forms: [employer] (Solomon Islander)
[2017-12-15 07:27] VITALS: BP 119/64; PULSE 81; RESP 18
[2017-12-15 21:46] VITALS: O2SAT 98
== END 2017-12-15 07:27 | disposition home or self-care (01) ==
LOC: H.ER 05:56
DX: G40.909 Epilepsy, unspecified, not intractable, without status epilepticus (principal); Z86.59 Personal history of other mental and behavioral disorders; G89.29 Other chronic pain

== ENCOUNTER 2018-02-20 11:26 | Emergency (ER) | payer OTHER ==
[2018-02-20 11:41] VITALS: BP 113/70; PULSE 68; RESP 17; TEMP 97.7; O2SAT 99
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
== END 2018-02-20 14:53 | disposition home or self-care (01) ==
LOC: H.ER 11:26
DX: S46.911A Strain of unspecified muscle, fascia and tendon at shoulder and upper arm level, right arm, initial encounter (principal); W19.XXXA Unspecified fall, initial encounter; Y93.55 Activity, bike riding; G40.909 Epilepsy, unspecified, not intractable, without status epilepticus

== ENCOUNTER 2018-03-11 23:01 | Emergency (ER) | payer OTHER ==
[2018-03-12 00:03] VITALS: TEMP 97.9
[2018-03-12 01:06] LABS: BASO % 0.9 % (0.0-2.0); EOS % 0.4 % (0.0-4.0); LYMPH % 32.9 % (20.0-40.0); MEAN CELL VOLUME 96.4 fl (80.0-94.0); MEAN CORPUSCULAR HEMOGLOBIN 33.1 pg (27.0-31.0); MEAN CORPUSCULAR HGB CONC 34.3 g/dL (33.0-37.0); MEAN PLATELET VOLUME 8.9 fl (7.2-11.7); MONO # 0.5 K/uL (0.0-0.8); MONO % 15.1 % (0.0-10.0); NEUT # 1.6 K/uL (1.8-7.0); NEUT % 50.7 % (50.0-75.0); RBC 3.63 Mil/uL (4.40-5.90); WHITE BLOOD COUNT 3.1 K/uL (4.8-10.8)
[2018-03-12 01:16] LABS: ALB/GLOB RATIO 1.1 (1.0-2.1); ALBUMIN 3.9 g/dL (3.5-5.0); ALT/SGPT 30 U/L (21-72); AST/SGOT 35 U/L (17-59); BLOOD UREA NITROGEN 17 mg/dl (9-20); CALCIUM 8.7 mg/dL (8.4-10.2); GFR AFRICAN-AMERICAN > 60; GFR NON-AFRICAN AMERICAN > 60
--- NOTE | 2018-03-12 01:24 | ED PDOC ---
Upper Extremity Pain/Injury Time Seen by Provider: 03/12/18 00:00 Chief Complaint (Nursing): Upper Extremity Problem/Injury Chief Complaint (Provider): Right Wrist Problem History Per: Patient History/Exam Limitations: no limitations Onset/Duration Of Symptoms: Days Current Symptoms Are (Timing): Still Present Additional Complaint(s): 37 year old male with a past medical history of pancreatitis, chronic pain, anxiety, depression and seizure presents to the ED for an evaluation of his right wrist. Patient states he had a seizure yesterday 03/11/18 and could not lift his wrist afterwards. He is able to move to lift his right arm. Also uses heroine every day. He visited the ED for the pain on R arm on 02/20/18 and the xray of his right forearm was negative. Denies any other weakness or parasthesia. no headache or dizziness. pt states is compliant with valproic acid med for seizure and has a neuro dr.. PMD: Michaelle Lyles Past Medical History Reviewed: Historical Data, Nursing Documentation, Vital Signs Vital Signs: Last Vital Signs Temp 97.9 F 03/12/18 00:00 Pulse 72 03/12/18 00:00 Resp 18 03/12/18 00:00 BP 128/85 03/12/18 00:00 Pulse Ox 99 03/12/18 00:00 - Medical History PMH: Anxiety, Depression, Pancreatitis, Seizures (Epilepsy), Chronic Pain Denies: Diabetes, Hepatitis, HIV, HTN, Chronic Kidney Disease, Sexually Transmitted Disease - Surgical History Surgical History: No Surg Hx - Family History Family History: States: Unknown Family Hx - Social History Alcohol: > 2 Drinks/Day Drugs: Other (IV drug abuse, heroine abuse) - Immunization History Hx Tetanus Toxoid Vaccination: No Hx Influenza Vaccination: Yes Hx Pneumococcal Vaccination: Yes - Home Medications Home Medications: Ambulatory Orders Medication Instructions Recorded Eslicarbazepine Acetate [Aptiom] 1,200 mg PO DAILY 01/09/17 Alprazolam [Xanax] 2 mg PO HS 07/20/17 Divalproex [Depakote DR(*BID*)] 1,000 mg PO BID 07/20/17 Divalproex [Depakote DR] 500 mg PO BID 14 Days tcp 07/24/17 Gabapentin [Neurontin] 100 mg PO BID 14 Days cap 07/24/17 Ibuprofen [Motrin Tab] 600 mg PO Q8 PRN #15 tab 11/03/17 Ibuprofen [Motrin] 600 mg PO Q6 #20 tab 02/20/18 - Allergies Allergies/Adverse Reactions: Allergies Allergy/AdvReac Type Severity Reaction Status Date / Time No Known Allergies Allergy Unverified 12/15/17 01:34 Review of Systems ROS Statement: Except As Marked, All Systems Reviewed And Found Negative Skin: Positive for: Other (right wrist ) Neurological: Negative for: Weakness, Numbness Psych: Negative for: Suicidal ideation (homicidal ideation) Physical Exam - Reviewed Nursing Documentation Reviewed: Yes Vital Signs Reviewed: Yes - Physical Exam Appears: Positive for: Well, Non-toxic, No Acute Distress Head Exam: Positive for: ATRAUMATIC, NORMAL INSPECTION, NORMOCEPHALIC Skin: Positive for: Normal Color, Warm, Dry Eye Exam: Positive for: EOMI, Normal appearance, PERRL ENT: Positive for: Normal ENT Inspection Neck: Positive for: Normal, Painless ROM, Supple. Negative for: Decreased ROM Cardiovascular/Chest: Positive for: Regular Rate, Rhythm. Negative for: Murmur Respiratory: Positive for: Normal Breath Sounds. Negative for: Decreased Breath Sounds, Wheezing, Respiratory Distress Gastrointestinal/Abdominal: Positive for: Normal Exam, Bowel Sounds, Soft. Negative for: Tenderness, Guarding, Rebound Back: Positive for: Normal Inspection Extremity: Positive for: Normal ROM. Negative for: Tenderness, Pedal Edema, Deformity Neurologic/Psych: Positive for: Alert, Oriented (x3), Gait (steady). Negative for: Motor/Sensory Deficits, Mood/Affect, Aphasia, Facial Droop - Laboratory Results Result Diagrams: 03/12/18 00:15 03/12/18 00:15 - ECG O2 Sat by Pulse Oximetry: 99 (RA) Pulse Ox Interpretation: Normal Medical Decision Making Medical Decision Making: Time: 14 Initial Impression: right wrist weakness r/o fracutre vs Michael's paralysis Initial Plan: --Head w/o contrast [CT] --CMP --CBC w/ Differential --Wrist, Right 3 Views [RAD] --Reevaluation Time: 117 CT - HEAD W/O CONTRAST FINDINGS: Brain: [id number] atrophy. No intracranial hemorrhage. No mass. Minimal encephalomalacia within left frontal region. No definite edema. Ventricles: No hydrocephalus. Bones/joints: No acute fracture. Soft tissues: Unremarkable. Sinuses: No acute sinusitis. Mastoid air cells: No significant effusion. Orbits: Unremarkable as visualized. IMPRESSION: 1. No definite acute intracranial abnormality. Acute infarction may be CT occult within first 24 hours. If a focal deficit persists, consider followup CT or MRI for further evaluation. 2. Incidental/non-acute findings are described above. Labs and x-ray of right wrist are normal. Patient is sleeping comfortably and now observed to be able to move his right arm. I explained to pt that could have been Michael's paralysis and explained patient needs to be compliant with seizure medication and make his neuro appt sooner. he follows with someone in [place]. Clinical Impression: seizure Upon provider evaluation patient is medically stable, and requires no further treatment in the ED at this time. Patient will be discharged. Counseling was provided and all questions were answered regarding diagnosis and need for follow up with neurologist. There is agreement to discharge plan. Return if symptoms persist or worsen. Scribe Attestation: Documented by Deonte Aquino, acting as a scribe for Evin Guy MD Provider Scribe Attestation: All medical record entries made by the Scribe were at my direction and personally dictated by me. I have reviewed the chart and agree that the record accurately reflects my personal performance of the history, physical exam, medical decision making, and the department course for this patient. I have also personally directed, reviewed, and agree with the discharge instructions and disposition. Disposition - Clinical Impression Clinical Impression: Seizure - Patient ED Disposition Is Patient to be Admitted: No Counseled Patient/Family Regarding: Studies Performed, Diagnosis, Need For Followup - Disposition Disposition: Routine/Home Disposition Time: 03:40 Condition: IMPROVED Additional Instructions: follow up with your neurologist in [place] in the next 1-2 days return to the ED with any worsening or concerning symptoms Instructions: Seizures, Adult (DC) Forms: [employer] (German)
[2018-03-12 02:13] LABS: BENZODIAZEPINES, UR NEGATIVE (NEGATIVE); PHENCYCLIDINE, UR NEGATIVE (NEGATIVE)
[2018-03-12 02:39] LABS: BARBITURATES, UR NEGATIVE (NEGATIVE); OPIATES, UR POSITIVE (NEGATIVE)
[2018-03-12 03:52] VITALS: BP 108/79; PULSE 80; RESP 20
[2018-03-12 03:54] VITALS: O2SAT 99
--- NOTE | 2018-03-12 09:35 | RAD ---
Date of service: 03/12/2018 PROCEDURE: Right Wrist Radiographs. HISTORY: wrist laxity, no trauma COMPARISON: None. FINDINGS: BONES: No acute fracture or destructive bony lesion identified. JOINTS: Normal. No dislocation. SOFT TISSUES: Normal. OTHER FINDINGS: None. IMPRESSION: Unremarkable right wrist radiographs.
--- NOTE | 2018-03-12 11:39 | CT ---
Date of service: 03/12/2018 PROCEDURE: CT HEAD WITHOUT CONTRAST. HISTORY: r hand drop COMPARISON: 10/29/2017 TECHNIQUE: Axial computed tomography images were obtained through the head/brain without intravenous contrast. Radiation dose: Total exam DLP = 837.15 mGy-cm. This CT exam was performed using one or more of the following dose reduction techniques: Automated exposure control, adjustment of the mA and/or kV according to patient size, and/or use of iterative reconstruction technique. FINDINGS: HEMORRHAGE: No intracranial hemorrhage. BRAIN: No mass effect or edema. No atrophy or chronic microvascular ischemic changes. VENTRICLES: Unremarkable. No hydrocephalus. CALVARIUM: Unremarkable. PARANASAL SINUSES: Unremarkable as visualized. No significant inflammatory changes. MASTOID AIR CELLS: Unremarkable as visualized. No inflammatory changes. OTHER FINDINGS: None. IMPRESSION: No acute intracranial abnormalities. No significant findings to account for the clinical presentation. No significant interval change compared to the prior examination(s). Concordant results (preliminary interpretation) provided by [employer]. Procedure Completed: 00:58 Preliminary ([facility]) Report: Dictated and Authenticated: 01:18 Final Interpretation: 11:37.
== END 2018-03-12 04:20 | disposition home or self-care (01) ==
LOC: H.ER 23:01
DX: G40.909 Epilepsy, unspecified, not intractable, without status epilepticus (principal); M25.531 Pain in right wrist; G89.29 Other chronic pain

== ENCOUNTER 2018-03-23 17:12 | Emergency (ER) | payer OTHER ==
[2018-03-23 17:22] VITALS: RESP 18
[2018-03-23] MEDS ORDERED: Sodium Chloride 0.9% 1,000 ML IV STA (17:33)
[2018-03-23] MEDS ORDERED: Tdap Vaccine 0.5 ml Vial (10-64 yrs) IM ONE ×2 (17:34→18:53)
--- NOTE | 2018-03-23 17:38 | ED PDOC ---
HPI: Seizure Time Seen by Provider: 03/23/18 17:26 Chief Complaint (Nursing): Seizure Chief Complaint (Provider): Seizure History Per: Patient History/Exam Limitations: no limitations Additional Complaint(s): Pt. has hx of seizures and had one today. Gets seizures frequently and last was few days ago. Takes his medicines as rx. He hit his head on the left side and has mild pain there. No other pain, weakness, neck pain, dyspnea, chest pain, dyspnea, dizziness, abd pain, arm or leg pain. No numbness, tingles. Took heroine today. No alcohol. Past Medical History Reviewed: Nursing Documentation, Vital Signs Vital Signs: Last Vital Signs Temp 99 F 03/23/18 17:19 Pulse 105 H 03/23/18 17:19 Resp 18 03/23/18 17:19 BP 129/69 03/23/18 17:19 Pulse Ox 99 03/23/18 17:43 - Medical History PMH: Anxiety, Depression, Pancreatitis, Seizures (Epilepsy), Chronic Pain Denies: Diabetes, Hepatitis, HIV, HTN, Chronic Kidney Disease, Sexually Transmitted Disease - Surgical History Surgical History: No Surg Hx - Family History Family History: States: Unknown Family Hx - Social History Alcohol: Occasional Drugs: Opiates - Immunization History Hx Tetanus Toxoid Vaccination: No Hx Influenza Vaccination: Yes Hx Pneumococcal Vaccination: Yes - Home Medications Home Medications: Ambulatory Orders Medication Instructions Recorded Eslicarbazepine Acetate [Aptiom] 1,200 mg PO DAILY 01/09/17 Alprazolam [Xanax] 2 mg PO HS 07/20/17 Divalproex [Depakote DR(*BID*)] 1,000 mg PO BID 07/20/17 Ibuprofen [Motrin] 600 mg PO Q6 #20 tab 02/20/18 - Allergies Allergies/Adverse Reactions: Allergies Allergy/AdvReac Type Severity Reaction Status Date / Time No Known Allergies Allergy Unverified 12/15/17 01:34 Review of Systems ROS Statement: Except As Marked, All Systems Reviewed And Found Negative Neurological: Positive for: Headache Physical Exam - Reviewed Nursing Documentation Reviewed: Yes Vital Signs Reviewed: Yes - Physical Exam Appears: Positive for: Non-toxic, No Acute Distress Head Exam: Positive for: NORMAL INSPECTION, NORMOCEPHALIC. Negative for: ATRAUMATIC (L lateral eye brow and forehead with swelling, tenderness, hematoma. Abrasion. ) Skin: Positive for: Normal Color, Warm, DRY Eye Exam: Positive for: EOMI, PERRL ENT: Positive for: Normal ENT Inspection, Other (no septal hematoma) Neck: Positive for: Normal, Painless ROM Cardiovascular/Chest: Positive for: Regular Rate, Rhythm Respiratory: Positive for: CNT, Normal Breath Sounds Gastrointestinal/Abdominal: Positive for: Normal Exam, Soft. Negative for: Tenderness Back: Positive for: Normal Inspection. Negative for: L CVA Tenderness, R CVA Tenderness Extremity: Positive for: Normal ROM. Negative for: Tenderness, Pedal Edema Neurologic/Psych: Positive for: Alert, poiser II-XII, Oriented. Negative for: Motor/Sensory Deficits, Aphasia, Facial Droop - Laboratory Results Result Diagrams: 03/23/18 18:00 03/23/18 18:00 Interpretation Of Abn Labs: valproic level 49.5 - ECG ECG: Positive for: Interpreted By Me, Viewed By Me ECG Rhythm: Positive for: Normal QRS, Normal ST Segment, Sinus Rhythm O2 Sat by Pulse Oximetry: 99 Pulse Ox Interpretation: Normal - CT Scan/US ct Other Rad Studies (CT/US): Read By Radiologist Other Rad Interpretation: no acute - Progress ED Course And Treament: 1832: Stable. AAOx3. Will give 500mg depakote to increase level. Pt. to fu with neurologist/pcp. Pain free. Tolerated PO. Disposition - Clinical Impression Clinical Impression: Opioid abuse, Seizure, Head injury, Abrasion - Patient ED Disposition Is Patient to be Admitted: No Counseled Patient/Family Regarding: Studies Performed, Diagnosis, Need For Followup - Disposition Referrals: Reinaldo Laguna MD [Medical Doctor] - 03/26/18 [facility] [Outside] - 03/26/18 Disposition: Routine/Home Disposition Time: 18:35 Condition: STABLE Additional Instructions: Return if not better in 3 days. Instructions: Seizures, Adult (DC), Headache, Adult (DC), Skin Abrasions (DC)
[2018-03-23 18:06] LABS: BASO % 0.5 % (0.0-2.0); EOS % 0.1 % (0.0-4.0); HEMOGLOBIN 13.9 g/dL (12.0-18.0); LYMPH # 0.7 K/uL (1.0-4.3); LYMPH % 17.5 % (20.0-40.0); MEAN CELL VOLUME 96.6 fl (80.0-94.0); MEAN CORPUSCULAR HEMOGLOBIN 33.2 pg (27.0-31.0); MEAN CORPUSCULAR HGB CONC 34.4 g/dL (33.0-37.0); MEAN PLATELET VOLUME 8.7 fl (7.2-11.7); MONO # 0.3 K/uL (0.0-0.8); NEUT # 2.8 K/uL (1.8-7.0); NEUT % 72.9 % (50.0-75.0); RBC 4.18 Mil/uL (4.40-5.90); RED CELL DISTRIBUTION WIDTH 13.9 % (11.5-14.5); WHITE BLOOD COUNT 3.8 K/uL (4.8-10.8)
[2018-03-23 18:24] LABS: ALB/GLOB RATIO 1.1 (1.0-2.1); ALBUMIN 4.6 g/dL (3.5-5.0); ALT/SGPT 28 U/L (21-72); AST/SGOT 36 U/L (17-59); BARBITURATES, UR NEGATIVE (NEGATIVE); BENZODIAZEPINES, UR NEGATIVE (NEGATIVE); BLOOD UREA NITROGEN 13 mg/dl (9-20); CALCIUM 9.6 mg/dL (8.4-10.2); GFR AFRICAN-AMERICAN > 60; GFR NON-AFRICAN AMERICAN > 60; OPIATES, UR POSITIVE (NEGATIVE); PHENCYCLIDINE, UR NEGATIVE (NEGATIVE)
--- NOTE | 2018-03-23 18:42 | CT ---
Date of service: 03/23/2018 PROCEDURE: CT HEAD WITHOUT CONTRAST. HISTORY: headache COMPARISON: Comparison is made to the previous study dated 03/12/2018 TECHNIQUE: Axial computed tomography images were obtained through the head/brain without intravenous contrast. Radiation dose: Total exam DLP = 885.59 mGy-cm. This CT exam was performed using one or more of the following dose reduction techniques: Automated exposure control, adjustment of the mA and/or kV according to patient size, and/or use of iterative reconstruction technique. FINDINGS: HEMORRHAGE: No intracranial hemorrhage. BRAIN: No mass effect or edema. No atrophy or chronic microvascular ischemic changes. VENTRICLES: Unremarkable. No hydrocephalus. CALVARIUM: Unremarkable. PARANASAL SINUSES: Unremarkable as visualized. No significant inflammatory changes. MASTOID AIR CELLS: Unremarkable as visualized. No inflammatory changes. OTHER FINDINGS: None. IMPRESSION: No evidence of acute intracranial hemorrhage mass effect or midline shift.
[2018-03-23] MEDS ORDERED: Valproic Acid 250 mg/5 ml UD Cup PO ONE (18:45)
[2018-03-23 18:48] VITALS: O2SAT 100
[2018-03-23 19:14] VITALS: BP 130/90; PULSE 90; TEMP 97.7
== END 2018-03-23 19:14 | disposition home or self-care (01) ==
LOC: H.ER 17:12
DX: G40.909 Epilepsy, unspecified, not intractable, without status epilepticus (principal); S09.90XA Unspecified injury of head, initial encounter; W19.XXXA Unspecified fall, initial encounter; Y92.89 Other specified places as the place of occurrence of the external cause; F11.10 Opioid abuse, uncomplicated
CPT/HCPCS: 70450; 80053; 80164; 80320; 80324; 80345; 80346; 80349; 80353; 80358; 80361; 82948; 83992; 85025; 90471; 90715; 99285; J7030

== ENCOUNTER 2018-03-23 19:39 | Emergency (ER) | payer OTHER ==
[2018-03-23 19:50] VITALS: RESP 16; O2SAT 97
[2018-03-23] MEDS ORDERED: Sodium Chloride 0.9% 1,000 ML IV STA (19:52)
--- NOTE | 2018-03-23 20:10 | ED PDOC ---
HPI: Seizure Time Seen by Provider: 03/23/18 19:50 Chief Complaint (Nursing): Seizure Chief Complaint (Provider): SEIZURE History/Exam Limitations: no limitations Recent Seizure Activity Began: Just Before Arrival Number Of Seizures: One Length Of Seizures (Duration): Unknown Quality Of Seizure: Generalized Precipitating Factor(s): Recent Street Drugs Associated Symptoms: denies: Bit Tongue, Incontinence Of Urine, Injury As A Result Of Seizure Activity Additional Complaint(s): Pt just discharged from ER and walked across the street and had seizure. He reports he feels fine now. Denies head injury. Denies drug or alcohol use. Offers no complaints and wants to leave Has wound to LEFT brow which was managed during previous visit and does not have new lesions. Against Medical Advice - AMA Patient Left Against Medical Advice: The patient declines admission to the hospital and wishes to leave the Emergency Department. This action is against my medical advice. This decision was made with informed refusal. The patient was told that admission to the hospital is necessary. Explanation of the reasons why were discussed. The risks of leaving were explained to the patient and include, but are not limited to, worsening of known or currently unknown conditions, permanent disability and from undiagnosed or untreated conditions. The patient has the capacity to make this informed decision and understands my explanation of the current medical problem and risks of leaving. The patient voluntarily accepts these risks and signed an AMA form documenting our conversation. The patient was given the opportunity to ask questions and reconsider. The patient was encouraged to return to the Emergency Department at any time for further care. Past Medical History Reviewed: Historical Data, Nursing Documentation, Vital Signs Vital Signs: Last Vital Signs Temp 100.8 F H 03/23/18 19:46 Pulse 93 H 03/23/18 19:46 Resp 16 03/23/18 19:46 BP 117/76 03/23/18 19:46 Pulse Ox 97 03/23/18 19:46 - Medical History PMH: Anxiety, Depression, Pancreatitis, Seizures (Epilepsy), Chronic Pain Denies: Diabetes, Hepatitis, HIV, HTN, Chronic Kidney Disease, Sexually Transmitted Disease - Family History Family History: States: Unknown Family Hx - Immunization History Hx Tetanus Toxoid Vaccination: No Hx Influenza Vaccination: Yes Hx Pneumococcal Vaccination: Yes - Home Medications Home Medications: Ambulatory Orders Medication Instructions Recorded Eslicarbazepine Acetate [Aptiom] 1,200 mg PO DAILY 01/09/17 Alprazolam [Xanax] 2 mg PO HS 07/20/17 Divalproex [Depakote DR(*BID*)] 1,000 mg PO BID 07/20/17 Ibuprofen [Motrin] 600 mg PO Q6 #20 tab 02/20/18 - Allergies Allergies/Adverse Reactions: Allergies Allergy/AdvReac Type Severity Reaction Status Date / Time No Known Allergies Allergy Unverified 12/15/17 01:34 Review of Systems ROS Statement: Except As Marked, All Systems Reviewed And Found Negative Skin: Positive for: Lesions Neurological: Positive for: Seizures. Negative for: Weakness, Numbness, Incoordination, Confusion, Headache, Dizziness Physical Exam - Reviewed Nursing Documentation Reviewed: Yes Vital Signs Reviewed: Yes - Physical Exam Appears: Positive for: No Acute Distress Head Exam: Positive for: NORMOCEPHALIC (LEFT lateral brow hematoma and laceration with dermabond) Skin: Positive for: Warm, Dry Eye Exam: Positive for: EOMI, PERRL Neck: Positive for: Painless ROM, Supple Respiratory: Negative for: Accessory Muscle Use, Respiratory Distress Extremity: Positive for: Normal ROM. Negative for: Deformity Neurologic/Psych: Positive for: Alert, Oriented (x3), Mood/Affect (normal mood, anxious affect), Gait (steady). Negative for: Motor/Sensory Deficits, Aphasia - ECG O2 Sat by Pulse Oximetry: 97 Disposition - Clinical Impression Clinical Impression: Drug abuse, Seizure disorder - Disposition Referrals: [facility] [Outside] Disposition: Against Medical Advice Disposition Time: 20:00 Condition: STABLE Additional Instructions: CONTINUE YOUR SEIZURE MEDICATIONS PRESCRIBED RETURN TO ER IMMEDIATELY FOR FURTHER EVALUATION AND MANAGEMENT Instructions: Seizures, Adult (DC), Leaving Against Medical Advice
[2018-03-23 22:49] VITALS: BP 126/63; PULSE 63; TEMP 98.3
--- NOTE | 2018-03-24 07:39 | CARD ---
APPROVED REPORT Date of service: 03/23/2018 <Conclusion> Normal sinus rhythm Moderate voltage criteria for LVH, may be normal variant Borderline ECG
== END 2018-03-23 20:10 | disposition left against medical advice (07) ==
LOC: H.ER 19:39
DX: G40.909 Epilepsy, unspecified, not intractable, without status epilepticus (principal); F11.10 Opioid abuse, uncomplicated

== ENCOUNTER 2018-04-16 23:20 | Emergency (ER) | payer OTHER ==
--- NOTE | 2018-04-17 00:13 | ED PDOC ---
HPI: Seizure Time Seen by Provider: 04/16/18 23:44 Chief Complaint (Nursing): Seizure Chief Complaint (Provider): Seizure History Per: Patient History/Exam Limitations: no limitations Number Of Seizures: One Additional Complaint(s): 38 year old male presents to the ED complaining of have 1 episode of an unwitnessed seizure at home prior to arrival. Patient states he was in bed when he thinks he had a seizure. He did not fall and he was on his bed. Prior to the seizure, patient reports he usually feels a headache and feels dizzy. Patient currently has a diffuse headache after seizure and usually gets headaches after seizures. He indicates he has 3 seizures per week and is compliant with his medications of Depakote and Aption which he takes everyday. Denies fever, Chest pain, difficulty breathing, and any weakness or numbness. He has an appointment with his neurologist next week. PMD: Dr. Alegre Past Medical History Reviewed: Historical Data, Nursing Documentation, Vital Signs Vital Signs: Last Vital Signs Temp 97.7 F 04/17/18 03:10 Pulse 55 L 04/17/18 03:10 Resp 18 04/17/18 03:10 BP 100/75 04/17/18 03:10 Pulse Ox 99 04/17/18 03:10 - Medical History PMH: Anxiety, Depression, Pancreatitis, Seizures (Epilepsy), Chronic Pain Denies: Diabetes, Hepatitis, HIV, HTN, Chronic Kidney Disease, Sexually Transmitted Disease - Surgical History Surgical History: No Surg Hx - Family History Family History: States: Unknown Family Hx - Social History Drugs: Opiates (History of use but not recent) - Immunization History Hx Tetanus Toxoid Vaccination: No Hx Influenza Vaccination: Yes Hx Pneumococcal Vaccination: Yes - Home Medications Home Medications: Ambulatory Orders Medication Instructions Recorded Eslicarbazepine Acetate [Aptiom] 1,200 mg PO DAILY 01/09/17 Alprazolam [Xanax] 2 mg PO HS 07/20/17 Divalproex [Depakote DR(*BID*)] 1,000 mg PO BID 07/20/17 Ibuprofen [Motrin] 600 mg PO Q6 #20 tab 02/20/18 Zolpidem [Ambien] 5 mg PO HS #5 tab 04/17/18 - Allergies Allergies/Adverse Reactions: Allergies Allergy/AdvReac Type Severity Reaction Status Date / Time No Known Allergies Allergy Verified 04/16/18 23:44 Review of Systems ROS Statement: Except As Marked, All Systems Reviewed And Found Negative Constitutional: Negative for: Fever Cardiovascular: Negative for: Chest Pain Respiratory: Negative for: Other (Difficulty breathing) Neurological: Positive for: Seizures, Headache, Dizziness. Negative for: Weakness, Numbness Physical Exam - Reviewed Nursing Documentation Reviewed: Yes Vital Signs Reviewed: Yes - Physical Exam Appears: Positive for: Non-toxic, No Acute Distress Head Exam: Positive for: ATRAUMATIC, NORMAL INSPECTION, NORMOCEPHALIC Skin: Positive for: Normal Color, Warm, Dry Eye Exam: Positive for: Normal appearance, EOMI, PERRL Neck: Positive for: Normal, Painless ROM Cardiovascular/Chest: Positive for: Regular Rate, Rhythm. Negative for: Murmur Respiratory: Positive for: Normal Breath Sounds. Negative for: Wheezing, Respiratory Distress Gastrointestinal/Abdominal: Positive for: Normal Exam, Soft. Negative for: Tenderness Extremity: Positive for: Normal ROM Neurologic/Psych: Positive for: Alert, Oriented. Negative for: Motor/Sensory Deficits - Laboratory Results Result Diagrams: 04/17/18 00:20 04/17/18 00:20 - ECG O2 Sat by Pulse Oximetry: 98 (RA) Pulse Ox Interpretation: Normal Medical Decision Making Medical Decision Making: Initial Impression: Seizure and headache. Differential includes seizure disorder and seizure related headache. Initial Plan: --CT Head --ECG --Alcohol serum --BMP --Drug screen --Magnesium --Valproic acid --CBC --Reglan 10mg IV --Toradol 15mg IV 00:56 CT head FINDINGS: Brain: Cerebral and cerebellar volume loss. Mild left more than right Patchy hypodensity is seen in the periventricular and subcortical white matter. Ventricles: Normal. No ventriculomegaly. Bones/joints: Normal. No acute fracture. Sinuses: Normal as visualized. No acute sinusitis. Mastoid air cells: Normal as visualized. No mastoid effusion. Orbits: The visualized portions of globe and lens are intact. Soft tissues: Normal. Vasculature: Vascular calcification. IMPRESSION: No evidence of an acute intracranial hemorrhage, midline shift or mass effect is identified. Scribe Attestation: Documented by Curtis Thomas acting as a scribe for Jaylen Romero MD. Provider Scribe Attestation: All medical record entries made by the Scribe were at my direction and personally dictated by me. I have reviewed the chart and agree that the record accurately reflects my personal performance of the history, physical exam, medical decision making, and the department course for this patient. I have also personally directed, reviewed, and agree with the discharge instructions and disposition. Disposition - Clinical Impression Clinical Impression: Opioid abuse, Headache, Recurrent seizures - Patient ED Disposition Is Patient to be Admitted: No Doctor Will See Patient In The: Office Counseled Patient/Family Regarding: Studies Performed, Diagnosis, Need For Followup - Disposition Disposition: Routine/Home Disposition Time: 03:00 Condition: GOOD Additional Instructions: ISIAH SENA, thank you for letting us take care of you today. Your provider was Jaylen Romero MD and you were treated for POSSBLE SEIZURE, HEADACHE, WEAKNESS. The emergency medical care you received today was directed at your acute symptoms. If you were prescribed any medication, please fill it and take as directed. It may take several days for your symptoms to resolve. Return to the Emergency Department if your symptoms worsen, do not improve, or if you have any other problems. Please contact your doctor or call one of the physicians/clinics you have been referred to that are listed on the Patient Visit Information form that is included in your discharge packet. Bring any paperwork you were given at discharge with you along with any medications you are taking to your follow up visit. Our treatment cannot replace ongoing medical care by a primary care provider outside of the emergency department. Thank you for allowing the [employer] [facility] [employer] team to be part of your care today. If you had an X-Ray or CT scan: A Radiologist will review the ED reading if any change in treatment is needed we will contact you. If you had a blood, urine, or wound culture: It will take several days for the results, if any change in treatment is needed we will contact you. If you had an STI test: It will take 48 hours for the results. Please call after 1 week if you have not heard back. Prescriptions: Zolpidem [Ambien] 5 mg PO HS #5 tab Instructions: Seizures, Adult (DC), Drug Abuse and Drug Addiction (DC), Headache, Adult (DC)
[2018-04-17 00:24] LABS: BASO % 0.4 % (0.0-2.0); EOS % 0.5 % (0.0-4.0); HEMOGLOBIN 11.4 g/dL (12.0-18.0); LYMPH # 1.1 K/uL (1.0-4.3); LYMPH % 22.9 % (20.0-40.0); MEAN CELL VOLUME 97.5 fl (80.0-94.0); MEAN CORPUSCULAR HEMOGLOBIN 33.8 pg (27.0-31.0); MEAN CORPUSCULAR HGB CONC 34.6 g/dL (33.0-37.0); MEAN PLATELET VOLUME 8.9 fl (7.2-11.7); MONO # 0.4 K/uL (0.0-0.8); MONO % 9.1 % (0.0-10.0); NEUT # 3.3 K/uL (1.8-7.0); NEUT % 67.1 % (50.0-75.0); RBC 3.37 Mil/uL (4.40-5.90); RED CELL DISTRIBUTION WIDTH 13.8 % (11.5-14.5); WHITE BLOOD COUNT 4.9 K/uL (4.8-10.8)
[2018-04-17 00:58] LABS: BLOOD UREA NITROGEN 10 mg/dl (9-20); GFR NON-AFRICAN AMERICAN > 60
[2018-04-17 01:38] LABS: BENZODIAZEPINES, UR NEGATIVE (NEGATIVE); PHENCYCLIDINE, UR NEGATIVE (NEGATIVE)
[2018-04-17 01:41] LABS: BARBITURATES, UR NEGATIVE (NEGATIVE); OPIATES, UR POSITIVE (NEGATIVE)
[2018-04-17] MEDS ORDERED: Valproate 500 MG in Sodium Chloride 0.9% 100 ML IVPB ONE (01:55)
[2018-04-17 03:31] VITALS: BP 100/75; PULSE 55; RESP 18; TEMP 97.7
--- NOTE | 2018-04-17 07:28 | CARD ---
APPROVED REPORT Date of service: 04/17/2018 EKG Measurement Heart [id number] <Conclusion> Normal sinus rhythm Voltage criteria for left ventricular hypertrophy Abnormal ECG
--- NOTE | 2018-04-17 11:49 | CT ---
Date of service: 04/17/2018 PROCEDURE: CT HEAD WITHOUT CONTRAST. HISTORY: Headache, seizure. COMPARISON: 03/23/2018. TECHNIQUE: Axial computed tomography images were obtained through the head/brain without intravenous contrast. Coronal and sagittal reconstructed images. Radiation dose: Total exam DLP = 828.04 mGy-cm. This CT exam was performed using one or more of the following dose reduction techniques: Automated exposure control, adjustment of the mA and/or kV according to patient size, and/or use of iterative reconstruction technique. FINDINGS: HEMORRHAGE: No intracranial hemorrhage. BRAIN: No mass effect or edema. No atrophy or chronic microvascular ischemic changes. VENTRICLES: Unremarkable. No hydrocephalus. CALVARIUM: Unremarkable. PARANASAL SINUSES: Unremarkable as visualized. No significant inflammatory changes. MASTOID AIR CELLS: Unremarkable as visualized. No inflammatory changes. OTHER FINDINGS: None. IMPRESSION: No acute intracranial abnormalities. No significant findings to account for the clinical presentation. No significant interval change compared to the prior examination(s). Concordant results (preliminary interpretation) provided by [employer]. Procedure Completed: 00:31. Preliminary ([employer]) Report: Dictated and Authenticated: 00:58. Final Interpretation: 11:47.
[2018-04-20 16:09] VITALS: O2SAT 98
== END 2018-04-17 03:11 | disposition home or self-care (01) ==
LOC: H.ER 23:20
DX: F11.10 Opioid abuse, uncomplicated (principal); R51 Headache; G40.909 Epilepsy, unspecified, not intractable, without status epilepticus; G89.29 Other chronic pain; Z86.59 Personal history of other mental and behavioral disorders
CPT/HCPCS: 70450; 80048; 80164; 80320; 80324; 80345; 80346; 80349; 80353; 80358; 80361; 83735; 83992; 85025; 93005; 96374; 96375; 99285; J1885; J2765

== ENCOUNTER 2018-05-08 01:06 | Emergency (ER) | payer OTHER ==
[2018-05-08] MEDS ORDERED: Valproate 1,000 MG in Sodium Chloride 0.9% 100 ML IVPB ONE (01:30)
--- NOTE | 2018-05-08 02:11 | ED PDOC ---
HPI: Seizure Time Seen by Provider: 05/08/18 01:17 Chief Complaint (Nursing): Seizure Chief Complaint (Provider): seizure History Per: Patient History/Exam Limitations: no limitations Additional Complaint(s): Bradly Ng, a 38 year old male with past medical history of depression and seizure disorder, presents to the emergency room s/p seizure. Patient states he had a seizure today, unwitnessed. He reports he is out of alprazolam and requests a refill for Percocet, alprazolam and ambien. No further medical complaints. Past Medical History Reviewed: Historical Data, Nursing Documentation, Vital Signs Vital Signs: Last Vital Signs Temp 98.2 F 05/08/18 01:26 Pulse 87 05/08/18 01:26 Resp 18 05/08/18 01:26 BP 113/62 05/08/18 01:26 Pulse Ox 97 05/08/18 01:26 - Medical History PMH: Anxiety, Depression, Pancreatitis, Seizures (Epilepsy), Chronic Pain Denies: Diabetes, Hepatitis, HIV, HTN, Chronic Kidney Disease, Sexually Transmitted Disease - Family History Family History: States: Unknown Family Hx - Immunization History Hx Tetanus Toxoid Vaccination: No Hx Influenza Vaccination: Yes Hx Pneumococcal Vaccination: Yes - Home Medications Home Medications: Ambulatory Orders Medication Instructions Recorded Eslicarbazepine Acetate [Aptiom] 1,200 mg PO DAILY 01/09/17 Alprazolam [Xanax] 2 mg PO HS 07/20/17 Divalproex [Depakote DR(*BID*)] 1,000 mg PO BID 07/20/17 Ibuprofen [Motrin] 600 mg PO Q6 #20 tab 02/20/18 Zolpidem [Ambien] 5 mg PO HS #5 tab 04/17/18 Hydroxyzine HCl 25 mg PO TID PRN #30 tablet 05/08/18 - Allergies Allergies/Adverse Reactions: Allergies Allergy/AdvReac Type Severity Reaction Status Date / Time No Known Allergies Allergy Verified 04/16/18 23:44 Review of Systems ROS Statement: Except As Marked, All Systems Reviewed And Found Negative Neurological: Positive for: Seizures Physical Exam - Reviewed Nursing Documentation Reviewed: Yes Vital Signs Reviewed: Yes - Physical Exam Appears: Negative for: No Acute Distress (disheveled, cachectic) Head Exam: Positive for: ATRAUMATIC, NORMAL INSPECTION, NORMOCEPHALIC Skin: Positive for: Normal Color Eye Exam: Positive for: Normal appearance ENT: Positive for: Normal ENT Inspection Neck: Positive for: Normal, Painless ROM, Supple Cardiovascular/Chest: Positive for: Regular Rate, Rhythm Respiratory: Positive for: Normal Breath Sounds. Negative for: Crackles, Rales, Rhonchi, Respiratory Distress Back: Positive for: Normal Inspection Extremity: Positive for: Other (abrasion second digit right hand) Neurologic/Psych: Positive for: Alert, client service supervisor II-XII, Oriented, Mood/Affect (Normal), Cerebellar Tests (Normal), Gait (Normal), Aphasia. Negative for: Motor/Sensory Deficits, Facial Droop - ECG O2 Sat by Pulse Oximetry: 97 (RA) Pulse Ox Interpretation: Normal Medical Decision Making Medical Decision Making: Time: 1:17 A/P: seizure likely because of medication noncompliance and drug abuse --Patient does not seem post-ictal at this time --Patient has had multiple visits for similar presentation, multiple workups and CT's --Patient states he has yet to followup with his neurologist Initial Plan: --Depacon 1000mg IV 345 No seizure activity in the ED Will d/c home Strongly advised followup with neurologist Scribe Attestation: Documented by Susan Swanson, acting as a scribe for Jose Wallace MD. Provider Scribe Attestation: All medical record entries made by the Scribe were at my direction and personally dictated by me. I have reviewed the chart and agree that the record accurately reflects my personal performance of the history, physical exam, medical decision making, and the department course for this patient. I have also personally directed, reviewed, and agree with the discharge instructions and disposition. Disposition - Clinical Impression Clinical Impression: Seizure - Patient ED Disposition Is Patient to be Admitted: No - Disposition Referrals: [facility] [Outside] Disposition: Routine/Home Disposition Time: 03:45 Condition: STABLE Prescriptions: Hydroxyzine HCl 25 mg PO TID PRN #30 tablet PRN Reason: Anxiety Instructions: Seizures, Adult (DC) Forms: [employer] (Monegasque)
[2018-05-08 03:36] VITALS: BP 110/74; PULSE 74; RESP 16; TEMP 97.6
[2018-05-08 04:21] VITALS: O2SAT 97
== END 2018-05-08 03:30 | disposition home or self-care (01) ==
LOC: H.ER 01:06
DX: G40.909 Epilepsy, unspecified, not intractable, without status epilepticus (principal)

== ENCOUNTER 2018-05-21 14:24 | Emergency (ER) | payer OTHER ==
[2018-05-21 14:34] VITALS: RESP 16; TEMP 99.8; O2SAT 98
--- NOTE | 2018-05-21 15:32 | ED PDOC ---
HPI: Seizure Time Seen by Provider: 05/21/18 14:57 Chief Complaint (Nursing): Seizure Chief Complaint (Provider): Seizure History Per: Patient History/Exam Limitations: no limitations Recent Seizure Activity Began: Hours Ago: (@12:30 today ) Number Of Seizures: Multiple Length Of Seizures (Duration): Unknown Associated Symptoms: denies: Bit Tongue, Incontinence Of Urine Additional Complaint(s): Bradly Ng is a 38 year old male with a past medical history of seizures, who presents to the emergency department for seizures, associated with generalized weakness and headache. Patient states that he was with his friends when he experienced 2 seizures at 12:30 today but does not know how long they lasted. He further states that he is unsure if he hit his head. Patient states he used heroine intravenously and thinks that might have triggered his seizures. He reports having no headache, urinary incontinence, tongue abrasions. Patient states he has had no other drug or alcohol use today. Patient states he is in compliance with his seizure medications an has an appointment with his neurologist next week. He reported that he walked to hospital after experiencing seizures. PMD: Andres Brady Past Medical History Reviewed: Historical Data, Nursing Documentation, Vital Signs Vital Signs: Last Vital Signs Temp 99.8 F H 05/21/18 14:31 Pulse 105 H 05/21/18 14:31 Resp 16 05/21/18 14:31 BP 110/72 05/21/18 14:31 Pulse Ox 98 05/21/18 14:31 - Medical History PMH: Anxiety, Depression, Pancreatitis, Seizures (Epilepsy), Chronic Pain Denies: Diabetes, Hepatitis, HIV, HTN, Chronic Kidney Disease, Sexually Transmitted Disease - Surgical History Surgical History: No Surg Hx - Family History Family History: States: Unknown Family Hx - Immunization History Hx Tetanus Toxoid Vaccination: No Hx Influenza Vaccination: Yes Hx Pneumococcal Vaccination: Yes - Home Medications Home Medications: Ambulatory Orders Medication Instructions Recorded Eslicarbazepine Acetate [Aptiom] 1,200 mg PO DAILY 01/09/17 Alprazolam [Xanax] 2 mg PO HS 07/20/17 Divalproex [Depakote DR(*BID*)] 1,000 mg PO BID 07/20/17 Ibuprofen [Motrin] 600 mg PO Q6 #20 tab 02/20/18 Zolpidem [Ambien] 5 mg PO HS #5 tab 04/17/18 RX: Hydroxyzine HCl 25 mg PO TID PRN #30 tablet 05/08/18 - Allergies Allergies/Adverse Reactions: Allergies Allergy/AdvReac Type Severity Reaction Status Date / Time No Known Allergies Allergy Verified 05/21/18 14:29 Review of Systems ROS Statement: Except As Marked, All Systems Reviewed And Found Negative Constitutional: Positive for: Weakness Neurological: Positive for: Headache Physical Exam - Reviewed Nursing Documentation Reviewed: Yes Vital Signs Reviewed: Yes - Physical Exam Appears: Positive for: Well, No Acute Distress Head Exam: Positive for: ATRAUMATIC, NORMOCEPHALIC Skin: Positive for: Warm, Dry Eye Exam: Positive for: EOMI, PERRL ENT: Negative for: Pharyngeal Erythema, Tonsillar Exudate Neck: Positive for: Painless ROM, Supple Cardiovascular/Chest: Positive for: Regular Rate, Rhythm. Negative for: Murmur Respiratory: Positive for: Normal Breath Sounds. Negative for: Respiratory Distress Gastrointestinal/Abdominal: Positive for: Soft. Negative for: Tenderness Back: Positive for: Normal Inspection. Negative for: Decreased ROM Extremity: Positive for: Normal ROM, Other (track stein antecubital fossa ). Negative for: Tenderness, Deformity Lymphatic: Negative for: Adenopathy Neurologic/Psych: Positive for: Alert, Oriented (x3). Negative for: Motor/Sensory Deficits - Laboratory Results Result Diagrams: 05/21/18 15:25 05/21/18 15:25 - ECG O2 Sat by Pulse Oximetry: 98 (RA) Pulse Ox Interpretation: Normal Medical Decision Making Medical Decision Making: Initial Time: 15:11 Initial Impression: Seizure and heroine abuse Initial Plan: --EKG --Alcohol Serum --CMP --Creatine Phosphokinase --Lact Acid, plasma --Magnesium --Phosphorous --Drug Screen --Valproic Acid --ED urine Dipstick --CBC with differential --java scala developer --Glucose Time: 16:00 Labs have come back unremarkable and Depakote level is therapeutic. Patient has stated he is feeling better and is eager to go home. Scribe Attestation: Documented by Clark Canchola, acting as a scribe for Wanda Soni MD . Provider Scribe Attestation: All medical record entries made by the Scribe were at my direction and personall y dictated by me. I have reviewed the chart and agree that the record accurately reflects my personal performance of the history, physical exam, medical decision making, and the department course for this patient. I have also personally directed, reviewed, and agree with the discharge instructions and disposition. Disposition - Clinical Impression Clinical Impression: Opioid abuse, Seizure - Disposition Disposition Time: 16:00 Condition: IMPROVED Additional Instructions: FOLLOW UP WITH YOUR NEUROLOGIST SOON POSSIBLE DON'T USE DRUGS Instructions: Seizures, Adult (DC), Opioid Use Disorder
[2018-05-21 15:43] LABS: BASO % 0.3 % (0.0-2.0); HEMOGLOBIN 12.8 g/dL (12.0-18.0); LYMPH # 0.3 K/uL (1.0-4.3); LYMPH % 5.6 % (20.0-40.0); MEAN CORPUSCULAR HEMOGLOBIN 33.2 pg (27.0-31.0); MEAN CORPUSCULAR HGB CONC 34.5 g/dL (33.0-37.0); MEAN PLATELET VOLUME 8.1 fl (7.2-11.7); MONO # 0.4 K/uL (0.0-0.8); MONO % 6.2 % (0.0-10.0); NEUT # 5.5 K/uL (1.8-7.0); NEUT % 87.9 % (50.0-75.0); PLATELET COUNT 183 K/uL (130-400); RBC 3.86 Mil/uL (4.40-5.90); RED CELL DISTRIBUTION WIDTH 13.3 % (11.5-14.5); WHITE BLOOD COUNT 6.2 K/uL (4.8-10.8)
[2018-05-21 15:57] LABS: ALBUMIN 4.1 g/dL (3.5-5.0); ALT/SGPT 30 U/L (21-72); AST/SGOT 38 U/L (17-59); BLOOD UREA NITROGEN 10 mg/dl (9-20); GFR NON-AFRICAN AMERICAN > 60
[2018-05-21 16:04] LABS: BENZODIAZEPINES, UR NEGATIVE (NEGATIVE); PHENCYCLIDINE, UR NEGATIVE (NEGATIVE)
[2018-05-21 16:05] LABS: BARBITURATES, UR NEGATIVE (NEGATIVE); OPIATES, UR POSITIVE (NEGATIVE)
[2018-05-21 16:12] VITALS: BP 110/70; PULSE 100
[2018-05-21 16:32] LABS: BANDS 4 % (0-2); LYMPHOCYTE 5 % (20-50); MONOCYTE 5 % (0-10); NEUTROPHIL 86 % (42-75); PLATELET ESTIMATE NORMAL (NORMAL); TOTAL CELLS COUNTED 100
[2018-05-21 16:33] LABS: ANISOCYTOSIS SLIGHT
--- NOTE | 2018-05-22 09:25 | CARD ---
APPROVED REPORT Date of service: 05/21/2018 EKG Measurement Heart [id number] <Conclusion> Normal sinus rhythm with sinus arrhythmia Left ventricular hypertrophy Abnormal ECG
== END 2018-05-21 16:13 | disposition home or self-care (01) ==
LOC: H.ER 14:24
DX: G40.909 Epilepsy, unspecified, not intractable, without status epilepticus (principal); F11.10 Opioid abuse, uncomplicated; G89.29 Other chronic pain

== ENCOUNTER 2018-07-27 13:22 | Emergency (ER) | payer OTHER ==
[2018-07-27 13:29] VITALS: BP 148/92; PULSE 101; RESP 20; TEMP 98.6; O2SAT 100
== END 2018-07-27 13:40 | disposition left against medical advice (07) ==
LOC: H.ER 13:22
DX: Z02.89 Encounter for other administrative examinations (principal)

== ENCOUNTER 2018-07-28 18:58 | Emergency (ER) | payer OTHER ==
[2018-07-28 19:26] VITALS: TEMP 98.5
[2018-07-28] MEDS ORDERED: Sodium Chloride 0.9% 1,000 ML IV STA (19:37)
[2018-07-28 20:33] LABS: BASO % 0.5 % (0.0-2.0); EOS # 0.1 K/uL (0.0-0.7); HEMOGLOBIN 12.1 g/dL (12.0-18.0); LYMPH # 1.8 K/uL (1.0-4.3); LYMPH % 42.5 % (20.0-40.0); MEAN CELL VOLUME 97.6 fl (80.0-94.0); MEAN CORPUSCULAR HGB CONC 33.8 g/dL (33.0-37.0); MEAN PLATELET VOLUME 8.7 fl (7.2-11.7); MONO # 0.4 K/uL (0.0-0.8); NEUT # 1.9 K/uL (1.8-7.0); NRBC % 0.2 % (0.0-0.0); RBC 3.65 Mil/uL (4.40-5.90); RED CELL DISTRIBUTION WIDTH 13.7 % (11.5-14.5); WHITE BLOOD COUNT 4.3 K/uL (4.8-10.8)
[2018-07-28 20:38] LABS: SQUAMOUS EPITHIAL < 1 /hpf (0-5); URINE BILIRUBIN NEGATIVE (NEGATIVE); URINE BLOOD NEGATIVE (NEGATIVE); URINE CLARITY SLIGHTY-CLOUDY (Clear); URINE COLOR YELLOW (YELLOW); URINE GLUCOSE (UA) NEG (NEGATIVE); URINE HYALINE CAST 0-2 /hpf (0-2); URINE LEUKOCYTE ESTERASE NEG Leu/uL (Negative); URINE PROTEIN NEGATIVE (NEGATIVE); URINE UROBILINOGEN 0.2-1.0 mg/dL (0.2-1.0)
[2018-07-28 20:42] LABS: ALB/GLOB RATIO 1.2 (1.0-2.1); ALBUMIN 4.2 g/dL (3.5-5.0); ALT/SGPT 40 U/L (21-72); AST/SGOT 37 U/L (17-59); BLOOD UREA NITROGEN 11 mg/dl (9-20); CALCIUM 8.8 mg/dL (8.4-10.2); GFR NON-AFRICAN AMERICAN > 60
[2018-07-28] MEDS ORDERED: Divalproex 500 mg ER (ONCE DAILY formulation) PO ONE ×2 (20:53→21:00)
[2018-07-28 20:59] LABS: BARBITURATES, UR NEGATIVE (NEGATIVE); BENZODIAZEPINES, UR POSITIVE (NEGATIVE); OPIATES, UR POSITIVE (NEGATIVE); PHENCYCLIDINE, UR NEGATIVE (NEGATIVE)
[2018-07-28 21:21] VITALS: BP 119/72; PULSE 89; RESP 15
[2018-07-28 21:22] VITALS: O2SAT 98
--- NOTE | 2018-07-28 21:22 | ED PDOC ---
HPI: Seizure Time Seen by Provider: 07/28/18 19:32 Chief Complaint (Nursing): Seizure Chief Complaint (Provider): Seizure History Per: Patient History/Exam Limitations: no limitations Recent Seizure Activity Began: Days Ago: (1x) Number Of Seizures: One Length Of Seizures (Duration): Unknown Severity: Moderate Additional Complaint(s): 38 year old male, well known to the ED and to provider for multiple visits related to seizures and heroin use presents to the ED for an evaluation of a seizure that occurred yesterday. Patient reports that yesterday he had a seizure and hit his left eyebrow. Patient states that he has had a headache since the seizure, and is requesting narcotics in the ED. Upon arrival, patient is seen to have heroin, needles, and syringes with him, as per nursing. PMD: Past Medical History Reviewed: Historical Data, Nursing Documentation, Vital Signs Vital Signs: Last Vital Signs Temp 98.5 F 07/28/18 19:21 Pulse 91 H 07/28/18 19:21 Resp 18 07/28/18 19:21 BP 113/71 07/28/18 19:21 Pulse Ox 98 07/28/18 19:21 - Medical History PMH: Anxiety, Depression, Pancreatitis, Seizures (Epilepsy), Chronic Pain Denies: Diabetes, Hepatitis, HIV, HTN, Chronic Kidney Disease, Sexually Transmitted Disease - Family History Family History: States: No Known Family Hx - Social History Current smoker - smoking cessation education provided: Yes Alcohol: None Drugs: Opiates (heroin daily. Patient is compliant with depakote and aptia procedures.) - Immunization History Hx Tetanus Toxoid Vaccination: No Hx Influenza Vaccination: Yes Hx Pneumococcal Vaccination: Yes - Home Medications Home Medications: Ambulatory Orders Medication Instructions Recorded Eslicarbazepine Acetate [Aptiom] 1,200 mg PO DAILY 01/09/17 Alprazolam [Xanax] 2 mg PO HS 07/20/17 Divalproex [Depakok[address]ie DR(*BID*)] 1,000 mg PO BID 07/20/17 Ibuprofen [Motrin] 600 mg PO Q6 #20 tab 02/20/18 Zolpidem [Ambien] 5 mg PO HS #5 tab 04/17/18 Hydroxyzine HCl 25 mg PO TID PRN #30 tablet 05/08/18 - Allergies Allergies/Adverse Reactions: Allergies Allergy/AdvReac Type Severity Reaction Status Date / Time No Known Allergies Allergy Verified 07/28/18 19:19 Review of Systems ROS Statement: Except As Marked, All Systems Reviewed And Found Negative Neurological: Positive for: Seizures (1 seizure yesterday), Headache, Other (head injury: hit left eyebrow ) Physical Exam - Reviewed Nursing Documentation Reviewed: Yes Vital Signs Reviewed: Yes - Physical Exam Appears: Positive for: Well, Non-toxic, No Acute Distress Head Exam: Positive for: NORMOCEPHALIC. Negative for: ATRAUMATIC (small scabbed laceration to left eyebrow with slight crusting.) Skin: Positive for: Normal Color, Warm, Dry Cardiovascular/Chest: Positive for: Regular Rate, Rhythm Respiratory: Positive for: Normal Breath Sounds Neurologic/Psych: Positive for: Alert, Oriented (3x ) - Laboratory Results Result Diagrams: 07/28/18 20:15 07/28/18 20:15 - ECG O2 Sat by Pulse Oximetry: 98 (RA) Pulse Ox Interpretation: Normal Medical Decision Making Medical Decision Makin:32 Initial impression: 38 year old male with a minor head injury insetting of a seizure. Initial plan: * crisis evaluation * EKG * labs * depakote 500 mg PO once * depakote 500 mg PO once * IV NS 1,000 ml IV 1,000 mls/hr * reevaluation Patient is now under police arrest. Patient is declining medical treatment now, and requesting to be discharged. 21:20 Patient discharged to [place] [employer]. Scribe Attestation: Documented byCami Cormier, acting as a scribe for Mitch Muir MD. Provider Scribe Attestation: All medical record entries made by the Scribe were at my direction and personally dictated by me. I have reviewed the chart and agree that the record accurately reflects my personal performance of the history, physical exam, medical decision making, and the department course for this patient. I have also personally directed, reviewed, and agree with the discharge instructions and disposition. Disposition - Clinical Impression Clinical Impression: Recurrent seizures, Heroin abuse - Disposition Disposition Time: 21:20 Condition: STABLE Additional Instructions: Patient is medically and psychiatrically stable for incarceration Instructions: Seizures, Adult (DC), Opioid Use Disorder Forms: [employer] (Faroese)
== END 2018-07-28 21:21 | disposition home or self-care (01) ==
LOC: H.ER 18:58
DX: G40.909 Epilepsy, unspecified, not intractable, without status epilepticus (principal); F11.10 Opioid abuse, uncomplicated; S09.90XA Unspecified injury of head, initial encounter; W19.XXXA Unspecified fall, initial encounter; Y92.89 Other specified places as the place of occurrence of the external cause; F17.200 Nicotine dependence, unspecified, uncomplicated; F32.9 Major depressive disorder, single episode, unspecified; F41.9 Anxiety disorder, unspecified; G89.29 Other chronic pain
CPT/HCPCS: 80053; 80164; 80320; 80324; 80345; 80346; 80349; 80353; 80358; 80361; 81003; 83992; 85025; 99285; J7030

== ENCOUNTER 2018-11-09 21:44 | Emergency (ER) | payer OTHER ==
[2018-11-09 21:50] VITALS: TEMP 97.3; O2SAT 98; BMI 23.7
--- NOTE | 2018-11-09 22:30 | ED PDOC ---
HPI: Seizure Time Seen by Provider: 11/09/18 22:04 Chief Complaint (Nursing): Seizure Chief Complaint (Provider): Seizure History Per: EMS History/Exam Limitations: clinical condition Recent Seizure Activity Began: Unknown Length Of Seizures (Duration): Unknown Additional Complaint(s): 38 year old male arrives to the emergency department via EMS for an evaluation of possible seizure prior to arrival. Patient is well-known to provider for multiple visits related to seizures and heroin abuse. As per EMS, patient appears under the influence and only oriented to person. Additionally, he is requesting referral for detox. Otherwise, patient is an unreliable hi storian. PCP: none provided Past Medical History Reviewed: Historical Data, Nursing Documentation, Vital Signs Vital Signs: Last Vital Signs Temp 97.3 F L 11/09/18 21:49 Pulse 93 H 11/09/18 21:49 Resp 18 11/09/18 21:49 BP 120/83 11/09/18 21:49 Pulse Ox 98 11/09/18 21:49 - Medical History PMH: Anxiety, Depression, Pancreatitis, Seizures (Epilepsy), Chronic Pain Denies: Diabetes, Hepatitis, HIV, HTN, Chronic Kidney Disease, Sexually Transmitted Disease - Family History Family History: States: Unknown Family Hx - Social History Drugs: Opiates (heroin) - Immunization History Hx Tetanus Toxoid Vaccination: No Hx Influenza Vaccination: Yes Hx Pneumococcal Vaccination: Yes - Home Medications Home Medications: Ambulatory Orders Medication Instructions Recorded Eslicarbazepine Acetate [Aptiom] 1,200 mg PO DAILY 01/09/17 Alprazolam [Xanax] 2 mg PO HS 07/20/17 Divalproex [Depakote DR(*BID*)] 1,000 mg PO BID 07/20/17 Ibuprofen [Motrin] 600 mg PO Q6 #20 tab 02/20/18 Zolpidem [Ambien] 5 mg PO HS #5 tab 04/17/18 Hydroxyzine HCl 25 mg PO TID PRN #30 tablet 05/08/18 - Allergies Allergies/Adverse Reactions: Allergies Allergy/AdvReac Type Severity Reaction Status Date / Time No Known Allergies Allergy Verified 11/09/18 21:48 Review of Systems Review Of Systems: ROS cannot be obtained secondary to pt's inabilty to answer questions. Physical Exam - Reviewed Nursing Documentation Reviewed: Yes Vital Signs Reviewed: Yes - Physical Exam Appears: Positive for: No Acute Distress Head Exam: Positive for: ATRAUMATIC, NORMAL INSPECTION, NORMOCEPHALIC Skin: Positive for: Normal Color Eye Exam: Positive for: Other (pinpoint pupils). Negative for: Normal appearance ENT: Positive for: Normal ENT Inspection Cardiovascular/Chest: Positive for: Regular Rate, Rhythm Respiratory: Positive for: Normal Breath Sounds. Negative for: Respiratory Distress Neurological/Psych: Positive for: Oriented (to person), Lethargic - Laboratory Results Result Diagrams: 11/09/18 22:38 11/09/18 22:38 - ECG O2 Sat by Pulse Oximetry: 98 (RA) Pulse Ox Interpretation: Normal Medical Decision Making Medical Decision Making: Initial Impression: 38 year old male with questionable seizure vs. heroin abuse Initial Plan: * Labs with UA * Accucheck [id number] Labs reviewed and show no clinically significant abnormality with exception of l ow valproic acid level. Depakene ordered. Patient has been seizure free, stable for discharge. Diagnosis: seizure, heroin abuse Scribe Attestation: Documented by Maria L Curran, acting as a scribe for Mitch Muir MD. Provider Scribe Attestation: All medical record entries made by the Scribe were at my direction and personally dictated by me. I have reviewed the chart and agree that the record accurately reflects my personal performance of the history, physical exam, medical decision making, and the department course for this patient. I have also personally directed, reviewed, and agree with the discharge instructions and disposition. Disposition - Clinical Impression Clinical Impression: Seizure, Heroin abuse - Patient ED Disposition Is Patient to be Admitted: No - Disposition Disposition: Routine/Home Disposition Time: 03:06 Condition: STABLE Instructions: Seizures, Adult (DC), Drug Abuse and Drug Addiction (DC) Forms: [employer] ([employer])
[2018-11-09 22:45] LABS: BASO % 0.8 % (0.0-2.0); EOS # 0.1 K/uL (0.0-0.7); LYMPH # 1.9 K/uL (1.0-4.3); LYMPH % 34.3 % (20.0-40.0); MEAN CORPUSCULAR HEMOGLOBIN 32.9 pg (27.0-31.0); MEAN CORPUSCULAR HGB CONC 34.3 g/dL (33.0-37.0); MEAN PLATELET VOLUME 8.9 fl (7.2-11.7); MONO # 0.6 K/uL (0.0-0.8); MONO % 11.1 % (0.0-10.0); NEUT # 2.8 K/uL (1.8-7.0); NEUT % 52.8 % (50.0-75.0); RBC 3.94 Mil/uL (4.40-5.90); RED CELL DISTRIBUTION WIDTH 14.4 % (11.5-14.5); URINE BILIRUBIN NEGATIVE (NEGATIVE); URINE BLOOD NEGATIVE (NEGATIVE); URINE CLARITY CLEAR (Clear); URINE COLOR YELLOW (YELLOW); URINE GLUCOSE (UA) NEG (NEGATIVE); URINE LEUKOCYTE ESTERASE NEG Leu/uL (Negative); URINE PROTEIN NEGATIVE (NEGATIVE); URINE UROBILINOGEN 0.2-1.0 mg/dL (0.2-1.0); WHITE BLOOD COUNT 5.4 K/uL (4.8-10.8)
[2018-11-09 22:55] LABS: ALB/GLOB RATIO 1.1 (1.0-2.1); ALBUMIN 4.5 g/dL (3.5-5.0); ALT/SGPT 40 U/L (21-72); AST/SGOT 42 U/L (17-59); BLOOD UREA NITROGEN 10 mg/dl (9-20); CALCIUM 9.6 mg/dL (8.4-10.2); GFR NON-AFRICAN AMERICAN > 60
[2018-11-09 23:06] LABS: BARBITURATES, UR NEGATIVE (NEGATIVE); BENZODIAZEPINES, UR POSITIVE (NEGATIVE); OPIATES, UR POSITIVE (NEGATIVE); PHENCYCLIDINE, UR NEGATIVE (NEGATIVE)
[2018-11-10 03:40] VITALS: BP 123/79; PULSE 77; RESP 16
== END 2018-11-10 03:35 | disposition home or self-care (01) ==
LOC: H.ER 21:44
DX: G40.909 Epilepsy, unspecified, not intractable, without status epilepticus (principal); F11.10 Opioid abuse, uncomplicated; F41.9 Anxiety disorder, unspecified; G89.29 Other chronic pain